=== PATIENT | female | born 1980 | race Caucasian/White ===

== ENCOUNTER 2016-12-21 12:37 | Emergency (ER) | payer BC ==
[2016-12-21] MEDS ORDERED: METOCLOPRAMIDE INJ 10MG/2ML VIAL (J2765) As Ordered ONE (13:47)
[2016-12-21 13:56] LABS: BASO # 0.1 K/mm3 (0.0-0.2); BASO % 0.8 % (0.0-1.0); EOS # 0.2 K/mm3 (0.0-0.50); LARGE UNSTAINED CELL # 0.1 K/mm3 (0.0-0.4); LARGE UNSTAINED CELL % 1.5 % (0.0-4.0); LYMPH # 3.3 K/mm3 (1.5-4.5); LYMPH % 38.9 % (24.0-44.0); MEAN CORPUSCULAR HEMOGLOBIN 30.5 pg (27.0-33.0); MEAN CORPUSCULAR HGB CONC 33.5 g/dl (32.0-36.5); MEAN CORPUSCULAR VOLUME 91.1 fl (80.0-96.0); MONO # 0.4 K/mm3 (0.0-0.8); MONO % 4.6 % (0.0-5.0); NEUTROPHILS # 4.2 K/mm3 (1.8-7.7); NEUTROPHILS % 52.2 % (36.0-66.0); PLATELET COUNT, AUTOMATED 367 k/mm3 (150-450); RED CELL DISTRIBUTION WIDTH 13.8 % (11.5-14.5)
[2016-12-21 14:27] LABS: ALBUMIN 3.7 GM/DL (3.2-5.2); ALBUMIN/GLOBULIN RATIO 0.93 (1.00-1.93); ALKALINE PHOSPHATASE 82 U/L (45-117); ALT/SGPT 29 U/L (12-78); ANION GAP 9 MEQ/L (8-16); AST/SGOT 29 U/L (15-37); BILIRUBIN,DIRECT < 0.1 MG/DL (0.0-0.2); BILIRUBIN,TOTAL 0.2 MG/DL (0.2-1.0); BLOOD UREA NITROGEN 10 MG/DL (7-18); CALCIUM LEVEL 8.8 MG/DL (8.5-10.1); CARBON DIOXIDE LEVEL 27 MEQ/L (21-32); CHLORIDE LEVEL 103 MEQ/L (98-107); CREATININE FOR GFR 0.64 MG/DL (0.55-1.02); GLOMERULAR FILTRATION RATE > 60.0 (>60); GLUCOSE, FASTING 97 MG/DL (70-105); POTASSIUM SERUM 3.9 MEQ/L (3.5-5.1); SODIUM LEVEL 139 MEQ/L (136-145); TOTAL PROTEIN 7.7 GM/DL (6.4-8.2)
[2016-12-21] MEDS ORDERED: ISOVUE-370 76% 100ML VIAL (Q9967) As Ordered ONE (14:59)
--- NOTE | 2016-12-21 15:50 | EDDOCDS ---
Physician Documentation [facility] Name: Sharonda Cardona Age: 36 yrs Sex: Female : 1980 Arrival Date: 12/21/2016 Time: 12:37 Bed I5 / M5 Private MD: IVANIA BROOKS Disposition: 12/21/16 15:38 Discharged to Home/Self Care. Impression: Nausea and vomiting. - Condition is Stable. - Discharge Instructions: Biliary Colic, Nausea and Vomiting, Viral Gastroenteritis. - Prescriptions for Reglan 10 mg Oral Tablet - take 1 tablet by ORAL route every 6 hours take 30 minutes before meals and at bedtime; 20 tablet. - Work Release Form - 1 day, Medication Reconciliation form. - Follow up: IVANIA BROOKS; When: Call to arrange an appointment; Reason: Wound/Symptom Recheck, Recheck today's complaints, Worsening of conditions, Continuance of care. - Problem is an ongoing problem. - Symptoms have improved. Historical: - Allergies: PENICILLINS; - Home Meds: 1. Zofran (as hydrochloride) 4 mg Oral tab (Last dose: 12/21/2016 08:00) - PMHx: none; - PSHx: Tubal ligation; - Social history: Smoking status: Patient states was never smoker of tobacco. No barriers to communication noted, The patient speaks fluent Sami, Speaks appropriately for age. - Family history: Not pertinent. - : The pt / caregiver states he / she is not on anticoagulants. Home medication list is obtained from the patient. - Exposure Risk Screening:: None identified. 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 2 in. (157.48 cm) (R); Pain 0/10; 15:47 BP 138 / 93; Pulse 78; Resp 18; Temp 96.5(T); Pulse Ox 97% on R/A; Pain 0/10; mcp 12:39 Body Mass Index 35.85 (88.90 kg, 157.48 cm) ct3 MDM: 13:30 NS 0.9% 1000 ml IV at bolus once ordered. cc10 13:30 IV Saline Lock ordered. cc10 13:30 Undress patient appropriately for examination ordered. cc10 13:31 Metoclopramide 10 mg IV at 40 mg/hr once over 15 mins ordered. cc10 13:31 Basic Metabolic Profile Ordered. EDMS 13:31 CBC with Diff Ordered. EDMS 13:31 Lipase Ordered. EDMS 13:31 Liver Profile Ordered. EDMS 13:31 Urinalysis Ordered. EDMS 13:31 CT ABD & PELVIS: IV Contrast Only Ordered. EDMS 13:31 NOTHING BY MOUTH+DIET ordered. EDMS 13:57 Financial registration complete. lg 14:40 Liver Profile Reviewed. cc10 14:40 Urinalysis Reviewed. cc10 14:40 Basic Metabolic Profile Reviewed. cc10 14:40 CBC with Diff Reviewed. cc10 14:40 Lipase Reviewed. cc10 15:02 [facility] Payment Agreement was scanned into [employer] and attached to record. lg Administered Medications: 13:58 Drug: Metoclopramide 10 mg [metoclopramide 5 mg/mL injection solution] Route: IV; Rate: mcp 40 mg/hr; Infused Over: 15 mins; Site: left antecubital; 14:40 Follow up: IV Status: Completed infusion; IV Intake: 9ml mcp 13:59 Drug: NS 0.9% 1000 ml [sodium chloride 0.9 % intravenous solution] Route: IV; Rate: mcp bolus; Site: left antecubital; Signatures: Dispatcher [employer] Socorro Corley RN RN srm Peters, Mary, RN RN mcp Ganter, LoriLee, Reg Reg lg Coniski, Colin, PA-C PA-C cc10 The chart was reviewed and I authenticate all verbal orders and agree with the evaluation and treatment provided.Attachments: 15:02 [facility] Payment Agreement lg MTDD
--- NOTE | 2016-12-21 15:50 | EDDOCDS ---
Nurse's Notes [facility] Name: Sharonda Cardona Age: 36 yrs Sex: Female : 1980 Arrival Date: 12/21/2016 Time: 12:37 Bed I5 / M5 Private MD: IVANIA BROOKS Diagnosis: Nausea and vomiting Presentation: 12/21 12:42 Presenting complaint: Patient states: vomiting for a week. been to urgent care x2 last srm night being the last. nausea. was given zofran and it doesn't help. abd pain when eats. Presenting complaint: Patient states: able to keep sips of fluids down. Adult Sepsis Screening: The patient does not have new or worsening altered mentation. Patient's respiratory rate is less than 22. Systolic blood pressure is greater than 100. Patient has a qSOFA score of 0- Negative Sepsis Screen. Suicide/Homicide risk assessment- the patient denies having any suicidal and/or homicidal ideations and does not present with any other emotional, behavioral or mental health complaints. Status: Patient is not a manager clinical services or dependent. Transition of care: patient was not received from another setting of care. 12:42 Acuity: JANEY Level 3 srm 12:42 Method Of Arrival: Walkin/Carried/Asstd srm Triage Assessment: 12:44 General: Appears in no apparent distress, Behavior is appropriate for age, cooperative. srm Pain: Pain currently is 6 out of 10 on a pain scale. HIV screening NA for this visit Offered previously. 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 Zofran (as hydrochloride) 4 mg Oral tab (Last dose: 12/21/2016 08:00) - PMHx: none; - PSHx: Tubal ligation; - Social history: Smoking status: Patient states was never smoker of tobacco. No barriers to communication noted, The patient speaks fluent Palestinian, Speaks appropriately for age. - Family history: Not pertinent. - : The pt / caregiver states he / she is not on anticoagulants. Home medication list is obtained from the patient. - Exposure Risk Screening:: None identified. Screenin:17 Sensitive Patient. kcs 14:06 Screening information is obtained from the patient. Fall risk: No risks identified. mcp Assistance ADL's: requires no assistance with activities of daily living. Abuse/DV Screen: The patient / caregiver reports he/she is: not in a situation that causes fear, pain or injury. Nutritional screening: No deficits noted. Advance Directives: There is no active DNR order. home support is adequate. Assessment: 14:06 General: Appears in no apparent distress, Behavior is cooperative. Neurological: No mcp deficits noted. Respiratory: Airway is patent Respiratory effort is even, unlabored. GI: Abdomen is non- distended Bowel sounds present X 4 quads. Abd is soft X 4 quads Reports nausea, vomiting. Derm: Skin is pink, warm & dry. 15:47 General: Appears in no apparent distress, Behavior is cooperative. Neurological: No mcp deficits noted. Respiratory: Airway is patent Respiratory effort is even, unlabored. GI: Denies nausea, vomiting. Derm: Skin is pink, warm & dry. Vital Signs: 12:39 BP 136 / 65; Pulse 104; Resp 18; Temp 96.9(O); Pulse Ox 97% on R/A; Weight 88.9 kg (M); ct3 Height 5 ft. 2 in. (157.48 cm) (R); Pain 0/10; 15:47 BP 138 / 93; Pulse 78; Resp 18; Temp 96.5(T); Pulse Ox 97% on R/A; Pain 0/10; mcp 12:39 Body Mass Index 35.85 (88.90 kg, 157.48 cm) ct3 Vitals: 12:39 Log In Time: December 21, 2016 at 12:35. ct3 ED Course: 12:38 Patient visited by Nancy Tejada PCA. ct3 12:38 Patient moved to Waiting ct3 12:39 IVANIA BROOKS is Private Physician. ct3 12:41 Patient moved to Pre RCE ct3 12:44 Triage Initiated srm 13:15 Patient moved to Triage 3 ar3 13:16 Maria Teresa Jolly,RN is Primary Nurse. srm 13:17 Katie Craig,BOB is Primary Nurse. srm 13:21 Elías Balderas PA-C is PHCP. cc10 13:21 Darrell Austin MD is Attending Physician. cc10 13:21 Patient visited by Elías Balderas PA-C. cc10 13:21 Patient visited by Elías Balderas PA-C. cc10 13:31 Patient moved to I1 / M1 cj 13:34 Patient moved to I5 / M5 kr3 13:44 Basic Metabolic Profile Sent. [facility] 13:44 CBC with Diff Sent. [facility] 13:44 Lipase Sent. [facility] 13:44 Liver Profile Sent. [facility] 14:07 Patient visited by Armida Mcfarland RN. [facility] 14:07 The patient / caregiver is instructed regarding the plan of care and ED course. Patient mcp has correct armband on for positive identification. Placed in gown. Bed in low position. Call light in reach. 14:07 Inserted saline lock: 20 gauge in left antecubital area and blood collected. The [facility] patient tolerated the procedure well. Labs drawn. (by ED staff). Sent per order to lab. 15:02 [facility] Payment Agreement was scanned into [employer] and attached to record. 15:38 IVANIA BROOKS is Referral Physician. cc10 15:48 Discontinued lock intact, bleeding controlled, pressure dressing applied, No mcp redness/swelling at site. No procedures done that require assistance. Administered Medications: 13:58 Drug: Metoclopramide 10 mg [metoclopramide 5 mg/mL injection solution] Route: IV; Rate: mcp 40 mg/hr; Infused Over: 15 mins; Site: left antecubital; 14:40 Follow up: IV Status: Completed infusion; IV Intake: 9ml [facility] 13:59 Drug: NS 0.9% 1000 ml [sodium chloride 0.9 % intravenous solution] Route: IV; Rate: mcp bolus; Site: left antecubital; Intake: 14:40 IV: 9.00ml; Total: 9.00ml. [facility] Order Results: Lab Order: Basic Metabolic Profile; SPEC'M 12/21/16 13:42 Test: GLUCOSE, FASTING; Value: 97; Range: 70-105; Units: MG/DL; Status: F Test: BLOOD UREA NITROGEN; Value: 10; Range: 7-18; Units: MG/DL; Status: F Test: CREATININE FOR GFR; Value: 0.64; Range: 0.55-1.02; Units: MG/DL; Status: F Test: GLOMERULAR FILTRATION RATE; Value: > 60.0; Range: >60; Status: F Test: SODIUM LEVEL; Value: 139; Range: 136-145; Units: MEQ/L; Status: F Test: POTASSIUM SERUM; Value: 3.9; Range: 3.5-5.1; Units: MEQ/L; Status: F Test: CHLORIDE LEVEL; Value: 103; Range: 98-107; Units: MEQ/L; Status: F Test: CARBON DIOXIDE LEVEL; Value: 27; Range: 21-32; Units: MEQ/L; Status: F Test: ANION GAP; Value: 9; Range: 8-16; Units: MEQ/L; Status: F Test: CALCIUM LEVEL; Value: 8.8; Range: 8.5-10.1; Units: MG/DL; Status: F Test Note: ; Units are mL/min/1.73 m2 Chronic Kidney Disease Staging per NKF: Stage I & II GFR >=60 Normal to Mildly Decreased Stage III GFR 30-59 Moderately Decreased Stage IV GFR 15-29 Severely Decreased Stage V GFR <15 Very Little GFR Left ESRD GFR <15 on INSPECTOR PURCHASED PARTS Lab Order: CBC with Diff; SPEC'M 12/21/16 13:42 Test: WHITE BLOOD COUNT; Value: 8.0; Range: 4.0-10.0; Units: K/mm3; Status: F Test: RED BLOOD COUNT; Value: 4.74; Range: 4.00-5.40; Units: M/mm3; Status: F Test: HEMOGLOBIN; Value: 14.5; Range: 12.0-16.0; Units: g/dl; Status: F Test: HEMATOCRIT; Value: 43.2; Range: 36.0-47.0; Units: %; Status: F Test: MEAN CORPUSCULAR VOLUME; Value: 91.1; Range: 80.0-96.0; Units: fl; Status: F Test: MEAN CORPUSCULAR HEMOGLOBIN; Value: 30.5; Range: 27.0-33.0; Units: pg; Status: F Test: MEAN CORPUSCULAR HGB CONC; Value: 33.5; Range: 32.0-36.5; Units: g/dl; Status: F Test: RED CELL DISTRIBUTION WIDTH; Value: 13.8; Range: 11.5-14.5; Units: %; Status: F Test: PLATELET COUNT, AUTOMATED; Value: 367; Range: 150-450; Units: k/mm3; Status: F Test: NEUTROPHILS %; Value: 52.2; Range: 36.0-66.0; Units: %; Status: F Test: LYMPH %; Value: 38.9; Range: 24.0-44.0; Units: %; Status: F Test: MONO %; Value: 4.6; Range: 0.0-5.0; Units: %; Status: F Test: EOS %; Value: 2.0; Range: 0.0-3.0; Units: %; Status: F Test: BASO %; Value: 0.8; Range: 0.0-1.0; Units: %; Status: F Test: LARGE UNSTAINED CELL %; Value: 1.5; Range: 0.0-4.0; Units: %; Status: F Test: NEUTROPHILS #; Value: 4.2; Range: 1.8-7.7; Units: K/mm3; Status: F Test: LYMPH #; Value: 3.3; Range: 1.5-4.5; Units: K/mm3; Status: F Test: MONO #; Value: 0.4; Range: 0.0-0.8; Units: K/mm3; Status: F Test: EOS #; Value: 0.2; Range: 0.0-0.50; Units: K/mm3; Status: F Test: BASO #; Value: 0.1; Range: 0.0-0.2; Units: K/mm3; Status: F Test: LARGE UNSTAINED CELL #; Value: 0.1; Range: 0.0-0.4; Units: K/mm3; Status: F Lab Order: Lipase; SPEC'M 12/21/16 13:42 Test: LIPASE; Value: 189; Range: 73-393; Units: U/L; Status: F Lab Order: Liver Profile; SPEC'M 12/21/16 13:42 Test: AST/SGOT; Value: 29; Range: 15-37; Units: U/L; Status: F Test: ALT/SGPT; Value: 29; Range: 12-78; Units: U/L; Status: F Test: ALKALINE PHOSPHATASE; Value: 82; Range: 45-117; Units: U/L; Status: F Test: BILIRUBIN,TOTAL; Value: 0.2; Range: 0.2-1.0; Units: MG/DL; Status: F Test: BILIRUBIN,DIRECT; Value: < 0.1; Range: 0.0-0.2; Units: MG/DL; Status: F Test: TOTAL PROTEIN; Value: 7.7; Range: 6.4-8.2; Units: GM/DL; Status: F Test: ALBUMIN; Value: 3.7; Range: 3.2-5.2; Units: GM/DL; Status: F Test: ALBUMIN/GLOBULIN RATIO; Value: 0.93; Range: 1.00-1.93; Abnormal: Below low normal; Status: F Lab Order: Urinalysis; SPEC'M 12/21/16 14:17 Test: APPEARANCE, URINE; Value: HAZY; Range: CLEAR; Status: F Test: COLOR, URINE; Value: YELLOW; Range: YELLOW; Status: F Test: PH,URINE; Value: 6.0; Range: 5.0-9.0; Units: UNITS; Status: F Test: SPECIFIC GRAVITY URINE AUTO; Value: 1.008; Range: 1.002-1.035; Status: F Test: PROTEIN, URINE AUTO; Value: NEGATIVE; Range: NEGATIVE; Units: mg/dL; Status: F Test: GLUCOSE, URINE (UA) AUTO; Value: NEGATIVE; Range: NEGATIVE; Units: mg/dL; Status: F Test: KETONE, URINE AUTO; Value: NEGATIVE; Range: NEGATIVE; Units: mg/dL; Status: F Test: UROBILINOGEN, URINE AUTO; Value: 0.2; Range: 0.0-2.0; Units: mg/dL; Status: F Test: BILIRUBIN, URINE AUTO; Value: NEGATIVE; Range: NEGATIVE; Status: F Test: NITRITE, URINE AUTO; Value: NEGATIVE; Range: NEGATIVE; Status: F Test: LEUKOCYTE ESTERASE, URINE AUTO; Value: 2+; Range: NEGATIVE; Abnormal: Above high normal; Status: F Test: BLOOD, URINE BLOOD; Value: 1+; Range: NEGATIVE; Abnormal: Above high normal; Status: F Test: WBC, URINE AUTO; Value: 6; Range: 0-3; Abnormal: Above high normal; Units: /HPF; Status: F Test: RBC, URINE AUTO; Value: 5; Range: 0-3; Abnormal: Above high normal; Units: /HPF; Status: F Test: BACTERIA, URINE AUTO; Value: 1+; Range: NEGATIVE; Abnormal: Above high normal; Status: F Test: SQUAMOUS EPITHELIAL CELL UR AU; Value: 8; Range: 0-6; Units: /HPF; Status: F Test: HYALINE CAST, URINE AUTO; Value: 0; Range: 0-1; Units: /LPF; Status: F Outcome: 15:38 Discharge ordered by Provider. cc10 15:48 Discharge Assessment: patient administered narcotics - no. The following High Risk [facility] Discharge criteria are identified: None. Discharged to home ambulatory, with family. Condition: stable. Discharge instructions given to patient, Instructed on discharge instructions, follow up and referral plans. medication usage, diet, Demonstrated understanding of instructions, medications, Pt was receptive of discharge instructions/ teaching. Prescriptions given X 1, Work note provided to patient. CT Study completed. Property sent home with patient. 15:49 Patient left the ED. [facility] Signatures: Orly Benjamin RN RN [facility] Socorro Parrish RN BOB [facility] Armida Mcfarland RN RN [facility] Kaz Mason, Abhijit [facility] Katie Craig,RN RN kr3 Kita Ladd, KITCHEN MANAGER KITCHEN MANAGER ar3 Tejada, Nancy, KITCHEN MANAGER KITCHEN MANAGER ct3 Maria Teresa Jolly RN RN Elías Ponce PA-C PADelroy cc10 MTDD
--- NOTE | 2016-12-22 05:51 | REP ---
Clinical: Abdominal pain. Technique: Axial contrast enhanced images from the lung bases to the pubic symphysis using 100 ml Isovue 370 intravenous contrast material with coronal and sagittal re-formations. Comparison: None. Findings: Lung bases demonstrate fibroatelectatic changes. Visualized heart and pericardium normal. Liver, spleen, pancreas, gallbladder, bilateral adrenal glands and kidneys are normal the enteric system demonstrates colonic diverticulosis without obstruction or obvious acute inflammatory process. Normal terminal ileum and appendix identified in the right lower quadrant. Pelvis demonstrates normal bladder and age-appropriate uterus/adnexa. No pelvic fluid/ascites. No intraperitoneal or retroperitoneal adenopathy. No free air. Vasculature appears normal and without aneurysm or dissection. Surrounding musculoskeletal structures demonstrate degenerative changes at the L5-S1 level. Impression: 1. Colonic and sigmoid diverticulosis without obvious acute diverticulitis. 2. Degenerative changes at the L5-S1 level. 3. No further acute intra-abdominal or pelvic pathology appreciated. Signed by Jose Juan Dill MD 12/21/2016 03:29 P
--- NOTE | 2016-12-23 16:50 | EDDOCDS ---
Physician Documentation [facility] Name: Sharonda Cardona Age: 36 yrs Sex: Female : 1980 Arrival Date: 12/21/2016 Time: 12:37 Bed I5 / M5 Private MD: IVANIA BROOKS Disposition: 12/21/16 15:38 Discharged to Home/Self Care. Impression: Nausea and vomiting. - Condition is Stable. - Discharge Instructions: Biliary Colic, Nausea and Vomiting, Viral Gastroenteritis. - Prescriptions for Reglan 10 mg Oral Tablet - take 1 tablet by ORAL route every 6 hours take 30 minutes before meals and at bedtime; 20 tablet. - Work Release Form - 1 day, Medication Reconciliation form. - Follow up: IVANIA BROOKS; When: Call to arrange an appointment; Reason: Wound/Symptom Recheck, Recheck today's complaints, Worsening of conditions, Continuance of care. - Problem is an ongoing problem. - Symptoms have improved. Historical: - Allergies: PENICILLINS; - Home Meds: 1. Zofran (as hydrochloride) 4 mg Oral tab (Last dose: 12/21/2016 08:00) - PMHx: none; - PSHx: Tubal ligation; - Social history: Smoking status: Patient states was never smoker of tobacco. No barriers to communication noted, The patient speaks fluent Swedish, Speaks appropriately for age. - Family history: Not pertinent. - : The pt / caregiver states he / she is not on anticoagulants. Home medication list is obtained from the patient. - Exposure Risk Screening:: None identified. 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 2 in. (157.48 cm) (R); Pain 0/10; 15:47 BP 138 / 93; Pulse 78; Resp 18; Temp 96.5(T); Pulse Ox 97% on R/A; Pain 0/10; mcp 12:39 Body Mass Index 35.85 (88.90 kg, 157.48 cm) ct3 MDM: 13:30 NS 0.9% 1000 ml IV at bolus once ordered. cc10 13:30 IV Saline Lock ordered. cc10 13:30 Undress patient appropriately for examination ordered. cc10 13:31 Metoclopramide 10 mg IV at 40 mg/hr once over 15 mins ordered. cc10 13:31 Basic Metabolic Profile Ordered. EDMS 13:31 CBC with Diff Ordered. EDMS 13:31 Lipase Ordered. EDMS 13:31 Liver Profile Ordered. EDMS 13:31 Urinalysis Ordered. EDMS 13:31 CT ABD & PELVIS: IV Contrast Only Ordered. EDMS 13:31 NOTHING BY MOUTH+DIET ordered. EDMS 13:57 Financial registration complete. lg 14:40 Liver Profile Reviewed. cc10 14:40 Urinalysis Reviewed. cc10 14:40 Basic Metabolic Profile Reviewed. cc10 14:40 CBC with Diff Reviewed. cc10 14:40 Lipase Reviewed. cc10 15:02 [facility] Payment Agreement was scanned into [employer] and attached to record. 12/22 13:20 T-Sheet-- Draft Copy was scanned into [employer] and attached to record. gb Administered Medications: 12/21 13:58 Drug: Metoclopramide 10 mg [metoclopramide 5 mg/mL injection solution] Route: IV; Rate: mcp 40 mg/hr; Infused Over: 15 mins; Site: left antecubital; 14:40 Follow up: IV Status: Completed infusion; IV Intake: 9ml mcp 13:59 Drug: NS 0.9% 1000 ml [sodium chloride 0.9 % intravenous solution] Route: IV; Rate: mcp bolus; Site: left antecubital; Signatures: Dispatcher [facility] Socorro Corley RN RN srm Peters, Mary, RN RN mcp Barnhardt, Gloria, Reg Reg gb Kaz Mason, Reg Reg lg Elías Baldears, VALERIO PADelroy cc10 The chart was reviewed and I authenticate all verbal orders and agree with the evaluation and treatment provided.Attachments: 15:02 [facility] Payment Agreement 12/22 13:20 T-Sheet-- Draft Copy gb Chart Complete MTDD
--- NOTE | 2016-12-23 16:50 | EDDOCDS ---
Physician Documentation [facility] Name: Sharonda Cardona Age: 36 yrs Sex: Female : 1980 Arrival Date: 12/21/2016 Time: 12:37 Bed I5 / M5 Private MD: IVANIA BROOKS Disposition: 12/21/16 15:38 Discharged to Home/Self Care. Impression: Nausea and vomiting. - Condition is Stable. - Discharge Instructions: Biliary Colic, Nausea and Vomiting, Viral Gastroenteritis. - Prescriptions for Reglan 10 mg Oral Tablet - take 1 tablet by ORAL route every 6 hours take 30 minutes before meals and at bedtime; 20 tablet. - Work Release Form - 1 day, Medication Reconciliation form. - Follow up: IVANIA BROOKS; When: Call to arrange an appointment; Reason: Wound/Symptom Recheck, Recheck today's complaints, Worsening of conditions, Continuance of care. - Problem is an ongoing problem. - Symptoms have improved. Historical: - Allergies: PENICILLINS; - Home Meds: 1. Zofran (as hydrochloride) 4 mg Oral tab (Last dose: 12/21/2016 08:00) - PMHx: none; - PSHx: Tubal ligation; - Social history: Smoking status: Patient states was never smoker of tobacco. No barriers to communication noted, The patient speaks fluent Mongolian, Speaks appropriately for age. - Family history: Not pertinent. - : The pt / caregiver states he / she is not on anticoagulants. Home medication list is obtained from the patient. - Exposure Risk Screening:: None identified. 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 2 in. (157.48 cm) (R); Pain 0/10; 15:47 BP 138 / 93; Pulse 78; Resp 18; Temp 96.5(T); Pulse Ox 97% on R/A; Pain 0/10; mcp 12:39 Body Mass Index 35.85 (88.90 kg, 157.48 cm) ct3 MDM: 13:30 NS 0.9% 1000 ml IV at bolus once ordered. cc10 13:30 IV Saline Lock ordered. cc10 13:30 Undress patient appropriately for examination ordered. cc10 13:31 Metoclopramide 10 mg IV at 40 mg/hr once over 15 mins ordered. cc10 13:31 Basic Metabolic Profile Ordered. EDMS 13:31 CBC with Diff Ordered. EDMS 13:31 Lipase Ordered. EDMS 13:31 Liver Profile Ordered. EDMS 13:31 Urinalysis Ordered. EDMS 13:31 CT ABD & PELVIS: IV Contrast Only Ordered. EDMS 13:31 NOTHING BY MOUTH+DIET ordered. EDMS 13:57 Financial registration complete. lg 14:40 Liver Profile Reviewed. cc10 14:40 Urinalysis Reviewed. cc10 14:40 Basic Metabolic Profile Reviewed. cc10 14:40 CBC with Diff Reviewed. cc10 14:40 Lipase Reviewed. cc10 15:02 [facility] Payment Agreement was scanned into [employer] and attached to record. 12/22 13:20 T-Sheet-- Draft Copy was scanned into [employer] and attached to record. gb Administered Medications: 12/21 13:58 Drug: Metoclopramide 10 mg [metoclopramide 5 mg/mL injection solution] Route: IV; Rate: mcp 40 mg/hr; Infused Over: 15 mins; Site: left antecubital; 14:40 Follow up: IV Status: Completed infusion; IV Intake: 9ml mcp 13:59 Drug: NS 0.9% 1000 ml [sodium chloride 0.9 % intravenous solution] Route: IV; Rate: mcp bolus; Site: left antecubital; Signatures: Dispatcher [facility] Socorro Corley RN RN srm Peters, Mary, RN RN mcp Barnhardt, Gloria, Reg Reg gb Kaz Mason, Reg Reg lg Elías Balderas, VALERIO PADelroy cc10 The chart was reviewed and I authenticate all verbal orders and agree with the evaluation and treatment provided.Attachments: 15:02 [facility] [place] 12/22 13:20 T-Sheet-- Draft Copy gb Chart Complete MTDD
--- NOTE | 2016-12-23 16:50 | EDDOCDS ---
Nurse's Notes [facility] Name: Sharonda Cardona Age: 36 yrs Sex: Female : 1980 Arrival Date: 12/21/2016 Time: 12:37 Bed I5 / M5 Private MD: IVANIA BROOKS Diagnosis: Nausea and vomiting Presentation: 12/21 12:42 Presenting complaint: Patient states: vomiting for a week. been to urgent care x2 last srm night being the last. nausea. was given zofran and it doesn't help. abd pain when eats. Presenting complaint: Patient states: able to keep sips of fluids down. Adult Sepsis Screening: The patient does not have new or worsening altered mentation. Patient's respiratory rate is less than 22. Systolic blood pressure is greater than 100. Patient has a qSOFA score of 0- Negative Sepsis Screen. Suicide/Homicide risk assessment- the patient denies having any suicidal and/or homicidal ideations and does not present with any other emotional, behavioral or mental health complaints. Status: Patient is not a neighborhood service center director or dependent. Transition of care: patient was not received from another setting of care. 12:42 Acuity: JANEY Level 3 srm 12:42 Method Of Arrival: Walkin/Carried/Asstd srm Triage Assessment: 12:44 General: Appears in no apparent distress, Behavior is appropriate for age, cooperative. srm Pain: Pain currently is 6 out of 10 on a pain scale. HIV screening NA for this visit Offered previously. 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 Zofran (as hydrochloride) 4 mg Oral tab (Last dose: 12/21/2016 08:00) - PMHx: none; - PSHx: Tubal ligation; - Social history: Smoking status: Patient states was never smoker of tobacco. No barriers to communication noted, The patient speaks fluent [place], Speaks appropriately for age. - Family history: Not pertinent. - : The pt / caregiver states he / she is not on anticoagulants. Home medication list is obtained from the patient. - Exposure Risk Screening:: None identified. Screenin:17 Sensitive Patient. kcs 14:06 Screening information is obtained from the patient. Fall risk: No risks identified. mcp Assistance ADL's: requires no assistance with activities of daily living. Abuse/DV Screen: The patient / caregiver reports he/she is: not in a situation that causes fear, pain or injury. Nutritional screening: No deficits noted. Advance Directives: There is no active DNR order. home support is adequate. Assessment: 14:06 General: Appears in no apparent distress, Behavior is cooperative. Neurological: No mcp deficits noted. Respiratory: Airway is patent Respiratory effort is even, unlabored. GI: Abdomen is non- distended Bowel sounds present X 4 quads. Abd is soft X 4 quads Reports nausea, vomiting. Derm: Skin is pink, warm & dry. 15:47 General: Appears in no apparent distress, Behavior is cooperative. Neurological: No mcp deficits noted. Respiratory: Airway is patent Respiratory effort is even, unlabored. GI: Denies nausea, vomiting. Derm: Skin is pink, warm & dry. Vital Signs: 12:39 BP 136 / 65; Pulse 104; Resp 18; Temp 96.9(O); Pulse Ox 97% on R/A; Weight 88.9 kg (M); ct3 Height 5 ft. 2 in. (157.48 cm) (R); Pain 0/10; 15:47 BP 138 / 93; Pulse 78; Resp 18; Temp 96.5(T); Pulse Ox 97% on R/A; Pain 0/10; mcp 12:39 Body Mass Index 35.85 (88.90 kg, 157.48 cm) ct3 Vitals: 12:39 Log In Time: December 21, 2016 at 12:35. ct3 ED Course: 12:38 Patient visited by Nancy Tejada PCA. ct3 12:38 Patient moved to Waiting ct3 12:39 IVANIA BROOKS is Private Physician. ct3 12:41 Patient moved to Pre RCE ct3 12:44 Triage Initiated srm 13:15 Patient moved to Triage 3 ar3 13:16 Maria Teresa Jolly,RN is Primary Nurse. srm 13:17 Katie Craig,BOB is Primary Nurse. srm 13:21 Elías Balderas PA-C is PHCP. cc10 13:21 Darrell Austin MD is Attending Physician. cc10 13:21 Patient visited by Elías Balderas PA-C. cc10 13:21 Patient visited by Elías Balderas PA-C. cc10 13:31 Patient moved to I1 / M1 cj 13:34 Patient moved to I5 / M5 kr3 13:44 Basic Metabolic Profile Sent. [facility] 13:44 CBC with Diff Sent. [facility] 13:44 Lipase Sent. [facility] 13:44 Liver Profile Sent. [facility] 14:07 Patient visited by Armida Mcfarland RN. [facility] 14:07 The patient / caregiver is instructed regarding the plan of care and ED course. Patient mcp has correct armband on for positive identification. Placed in gown. Bed in low position. Call light in reach. 14:07 Inserted saline lock: 20 gauge in left antecubital area and blood collected. The [facility] patient tolerated the procedure well. Labs drawn. (by ED staff). Sent per order to lab. 15:02 [facility] Payment Agreement was scanned into [employer] and attached to record. 15:38 IVANIA BROOKS is Referral Physician. cc10 15:48 Discontinued lock intact, bleeding controlled, pressure dressing applied, No mcp redness/swelling at site. No procedures done that require assistance. 12/22 05:58 CT ABD & PELVIS: IV Contrast Only Returned. EDMS 13:20 T-Sheet-- Draft Copy was scanned into [employer] and attached to record. gb Administered Medications: 12/21 13:58 Drug: Metoclopramide 10 mg [metoclopramide 5 mg/mL injection solution] Route: IV; Rate: mcp 40 mg/hr; Infused Over: 15 mins; Site: left antecubital; 14:40 Follow up: IV Status: Completed infusion; IV Intake: 9ml [facility] 13:59 Drug: NS 0.9% 1000 ml [sodium chloride 0.9 % intravenous solution] Route: IV; Rate: mcp bolus; Site: left antecubital; Intake: 14:40 IV: 9.00ml; Total: 9.00ml. [facility] Order Results: Lab Order: Basic Metabolic Profile; SPEC'M 12/21/16 13:42 Test: GLUCOSE, FASTING; Value: 97; Range: 70-105; Units: MG/DL; Status: F Test: BLOOD UREA NITROGEN; Value: 10; Range: 7-18; Units: MG/DL; Status: F Test: CREATININE FOR GFR; Value: 0.64; Range: 0.55-1.02; Units: MG/DL; Status: F Test: GLOMERULAR FILTRATION RATE; Value: > 60.0; Range: >60; Status: F Test: SODIUM LEVEL; Value: 139; Range: 136-145; Units: MEQ/L; Status: F Test: POTASSIUM SERUM; Value: 3.9; Range: 3.5-5.1; Units: MEQ/L; Status: F Test: CHLORIDE LEVEL; Value: 103; Range: 98-107; Units: MEQ/L; Status: F Test: CARBON DIOXIDE LEVEL; Value: 27; Range: 21-32; Units: MEQ/L; Status: F Test: ANION GAP; Value: 9; Range: 8-16; Units: MEQ/L; Status: F Test: CALCIUM LEVEL; Value: 8.8; Range: 8.5-10.1; Units: MG/DL; Status: F Test Note: ; Units are mL/min/1.73 m2 Chronic Kidney Disease Staging per NKF: Stage I & II GFR >=60 Normal to Mildly Decreased Stage III GFR 30-59 Moderately Decreased Stage IV GFR 15-29 Severely Decreased Stage V GFR <15 Very Little GFR Left ESRD GFR <15 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 Lab Order: CBC with Diff; SPEC'M 12/21/16 13:42 Test: WHITE BLOOD COUNT; Value: 8.0; Range: 4.0-10.0; Units: K/mm3; Status: F Test: RED BLOOD COUNT; Value: 4.74; Range: 4.00-5.40; Units: M/mm3; Status: F Test: HEMOGLOBIN; Value: 14.5; Range: 12.0-16.0; Units: g/dl; Status: F Test: HEMATOCRIT; Value: 43.2; Range: 36.0-47.0; Units: %; Status: F Test: MEAN CORPUSCULAR VOLUME; Value: 91.1; Range: 80.0-96.0; Units: fl; Status: F Test: MEAN CORPUSCULAR HEMOGLOBIN; Value: 30.5; Range: 27.0-33.0; Units: pg; Status: F Test: MEAN CORPUSCULAR HGB CONC; Value: 33.5; Range: 32.0-36.5; Units: g/dl; Status: F Test: RED CELL DISTRIBUTION WIDTH; Value: 13.8; Range: 11.5-14.5; Units: %; Status: F Test: PLATELET COUNT, AUTOMATED; Value: 367; Range: 150-450; Units: k/mm3; Status: F Test: NEUTROPHILS %; Value: 52.2; Range: 36.0-66.0; Units: %; Status: F Test: LYMPH %; Value: 38.9; Range: 24.0-44.0; Units: %; Status: F Test: MONO %; Value: 4.6; Range: 0.0-5.0; Units: %; Status: F Test: EOS %; Value: 2.0; Range: 0.0-3.0; Units: %; Status: F Test: BASO %; Value: 0.8; Range: 0.0-1.0; Units: %; Status: F Test: LARGE UNSTAINED CELL %; Value: 1.5; Range: 0.0-4.0; Units: %; Status: F Test: NEUTROPHILS #; Value: 4.2; Range: 1.8-7.7; Units: K/mm3; Status: F Test: LYMPH #; Value: 3.3; Range: 1.5-4.5; Units: K/mm3; Status: F Test: MONO #; Value: 0.4; Range: 0.0-0.8; Units: K/mm3; Status: F Test: EOS #; Value: 0.2; Range: 0.0-0.50; Units: K/mm3; Status: F Test: BASO #; Value: 0.1; Range: 0.0-0.2; Units: K/mm3; Status: F Test: LARGE UNSTAINED CELL #; Value: 0.1; Range: 0.0-0.4; Units: K/mm3; Status: F Lab Order: Lipase; SPEC'M 12/21/16 13:42 Test: LIPASE; Value: 189; Range: 73-393; Units: U/L; Status: F Lab Order: Liver Profile; SPEC'M 12/21/16 13:42 Test: AST/SGOT; Value: 29; Range: 15-37; Units: U/L; Status: F Test: ALT/SGPT; Value: 29; Range: 12-78; Units: U/L; Status: F Test: ALKALINE PHOSPHATASE; Value: 82; Range: 45-117; Units: U/L; Status: F Test: BILIRUBIN,TOTAL; Value: 0.2; Range: 0.2-1.0; Units: MG/DL; Status: F Test: BILIRUBIN,DIRECT; Value: < 0.1; Range: 0.0-0.2; Units: MG/DL; Status: F Test: TOTAL PROTEIN; Value: 7.7; Range: 6.4-8.2; Units: GM/DL; Status: F Test: ALBUMIN; Value: 3.7; Range: 3.2-5.2; Units: GM/DL; Status: F Test: ALBUMIN/GLOBULIN RATIO; Value: 0.93; Range: 1.00-1.93; Abnormal: Below low normal; Status: F Lab Order: Urinalysis; SPEC'M 12/21/16 14:17 Test: APPEARANCE, URINE; Value: HAZY; Range: CLEAR; Status: F Test: COLOR, URINE; Value: YELLOW; Range: YELLOW; Status: F Test: PH,URINE; Value: 6.0; Range: 5.0-9.0; Units: UNITS; Status: F Test: SPECIFIC GRAVITY URINE AUTO; Value: 1.008; Range: 1.002-1.035; Status: F Test: PROTEIN, URINE AUTO; Value: NEGATIVE; Range: NEGATIVE; Units: mg/dL; Status: F Test: GLUCOSE, URINE (UA) AUTO; Value: NEGATIVE; Range: NEGATIVE; Units: mg/dL; Status: F Test: KETONE, URINE AUTO; Value: NEGATIVE; Range: NEGATIVE; Units: mg/dL; Status: F Test: UROBILINOGEN, URINE AUTO; Value: 0.2; Range: 0.0-2.0; Units: mg/dL; Status: F Test: BILIRUBIN, URINE AUTO; Value: NEGATIVE; Range: NEGATIVE; Status: F Test: NITRITE, URINE AUTO; Value: NEGATIVE; Range: NEGATIVE; Status: F Test: LEUKOCYTE ESTERASE, URINE AUTO; Value: 2+; Range: NEGATIVE; Abnormal: Above high normal; Status: F Test: BLOOD, URINE BLOOD; Value: 1+; Range: NEGATIVE; Abnormal: Above high normal; Status: F Test: WBC, URINE AUTO; Value: 6; Range: 0-3; Abnormal: Above high normal; Units: /HPF; Status: F Test: RBC, URINE AUTO; Value: 5; Range: 0-3; Abnormal: Above high normal; Units: /HPF; Status: F Test: BACTERIA, URINE AUTO; Value: 1+; Range: NEGATIVE; Abnormal: Above high normal; Status: F Test: SQUAMOUS EPITHELIAL CELL UR AU; Value: 8; Range: 0-6; Units: /HPF; Status: F Test: HYALINE CAST, URINE AUTO; Value: 0; Range: 0-1; Units: /LPF; Status: F Radiology Order: CT ABD & PELVIS: IV Contrast Only Test: CT ABD & PELVIS: IV Contrast Only REASON FOR EXAMINATION: Abdomen Pain; Clinical: Abdominal pain.; ; Technique: Axial contrast enhanced images from the lung bases to the pubic; symphysis using 100 ml Isovue 370 intravenous contrast material with coronal and; sagittal re-formations.; ; Comparison: None.; ; Findings:; Lung bases demonstrate fibroatelectatic changes. Visualized heart and; pericardium normal.; ; Liver, spleen, pancreas, gallbladder, bilateral adrenal glands and kidneys are; normal the enteric system demonstrates colonic diverticulosis without obstruction; or obvious acute inflammatory process. Normal terminal ileum and appendix; identified in the right lower quadrant. Pelvis demonstrates normal bladder and; age-appropriate uterus/adnexa. No pelvic fluid/ascites. No intraperitoneal or; retroperitoneal adenopathy. No free air. Vasculature appears normal and without; aneurysm or dissection. Surrounding musculoskeletal structures demonstrate; degenerative changes at the L5-S1 level.; ; Impression:; 1. Colonic and sigmoid diverticulosis without obvious acute diverticulitis.; 2. Degenerative changes at the L5-S1 level.; 3. No further acute intra-abdominal or pelvic pathology appreciated.; ; ; Signed by; Jose Juan Dill MD 12/21/2016 03:29 P; Outcome: 15:38 Discharge ordered by Provider. cc10 15:48 Discharge Assessment: patient administered narcotics - no. The following High Risk [facility] Discharge criteria are identified: None. Discharged to home ambulatory, with family. Condition: stable. Discharge instructions given to patient, Instructed on discharge instructions, follow up and referral plans. medication usage, diet, Demonstrated understanding of instructions, medications, Pt was receptive of discharge instructions/ teaching. Prescriptions given X 1, Work note provided to patient. CT Study completed. Property sent home with patient. 15:49 Patient left the ED. [facility] Signatures: Dispatcher [employer] Orly Wallace, RN RN [facility] Socorro Parrish RN RN srm Peters, Mary, RN RN mcp Barnhardt, Diana, Reg Reg gb IsabellaKaz, Reg Reg lg Katie Craig,BOB RN kr3 Wilberto, Kita, MACHINE BUILDER MACHINE BUILDER ar3 Tejada, Nancy, MACHINE BUILDER MACHINE BUILDER ct3 Maria Teresa JollyRN RN [facility] Elías Balderas, PA-C PA-C cc10 Chart Complete MTDD
== END 2016-12-21 15:49 | disposition home or self-care (01) ==
LOC: M ED 12:37
DX: R11.2 Nausea with vomiting, unspecified (principal); E66.9 Obesity, unspecified; Z68.35 Body mass index [BMI] 35.0-35.9, adult; Z88.0 Allergy status to penicillin
CPT/HCPCS: 36415; 74177; 80048; 80076; 81001; 83690; 85025; 96365; 99284; J2765; Q9967

== ENCOUNTER → 2016-12-30 | Outpatient (REF) | payer BC ==
[2017-01-04 00:06] LABS: O+P EXAM Final report (.)
== END ==
LOC: M LAB REF 20:15
PROVIDERS: ATTEND Physician Assistant
DX: R19.7 Diarrhea, unspecified (principal)

== ENCOUNTER → 2017-04-01 | Outpatient (REF) | payer BC ==
[2017-04-02 14:12] LABS: Lyme Disease IgG/IgM Antibodie <0.91 ISR (0.00-0.90); Lyme Disease IgM Ab Quantitati <0.80 index (0.00-0.79)
== END ==
LOC: M LAB REF 09:26
PROVIDERS: ATTEND Physician Assistant
DX: S70.361A Insect bite (nonvenomous), right thigh, initial encounter (principal); X58.XXXA Exposure to other specified factors, initial encounter; Y92.89 Other specified places as the place of occurrence of the external cause; Y93.89 Activity, other specified; Y99.8 Other external cause status

== ENCOUNTER → 2017-06-09 | Outpatient (REF) | payer BC ==
[2017-06-09 22:28] LABS: BASO % 0.6 % (0.0-1.0); EOS # 0.3 K/mm3 (0.0-0.50); EOS % 3.5 % (0.0-3.0); LYMPH # 2.2 K/mm3 (1.5-4.5); LYMPH % 27.9 % (24.0-44.0); MEAN CORPUSCULAR HEMOGLOBIN 31.1 pg (27.0-33.0); MEAN CORPUSCULAR VOLUME 91.6 fl (80.0-96.0); MONO # 0.5 K/mm3 (0.0-0.8); MONO % 6.4 % (0.0-5.0); NEUTROPHILS # 4.4 K/mm3 (1.8-7.7); RED CELL DISTRIBUTION WIDTH 13.8 % (11.5-14.5); WHITE BLOOD COUNT 7.4 K/mm3 (4.0-10.0)
[2017-06-09 22:46] LABS: ALBUMIN 3.7 GM/DL (3.2-5.2); ALBUMIN/GLOBULIN RATIO 1.16 (1.00-1.93); ALKALINE PHOSPHATASE 68 U/L (45-117); ALT/SGPT 30 U/L (12-78); ANION GAP 10 MEQ/L (8-16); AST/SGOT 26 U/L (15-37); BILIRUBIN,TOTAL 0.3 MG/DL (0.2-1.0); BLOOD UREA NITROGEN 9 MG/DL (7-18); CALCIUM LEVEL 9.1 MG/DL (8.5-10.1); CARBON DIOXIDE LEVEL 25 MEQ/L (21-32); CHLORIDE LEVEL 105 MEQ/L (98-107); CHOLESTEROL LEVEL 228 MG/DL (<200); CREATININE FOR GFR 0.59 MG/DL (0.55-1.02); GLOMERULAR FILTRATION RATE > 60.0 (>60); GLUCOSE, FASTING 95 MG/DL (70-105); POTASSIUM SERUM 4.4 MEQ/L (3.5-5.1); SODIUM LEVEL 140 MEQ/L (136-145); TOTAL PROTEIN 6.9 GM/DL (6.4-8.2); TRIGLYCERIDES LEVEL 264 MG/DL (<150)
== END ==
LOC: M LAB 22:05
PROVIDERS: ATTEND Registered Nurse Diabetes Educator
DX: I10 Essential (primary) hypertension (principal); F32.9 Major depressive disorder, single episode, unspecified

== ENCOUNTER 2018-06-29 21:42 | Emergency (ER) | payer BC ==
[2018-06-29 22:53] LABS: BASO # 0.1 10^3/uL (0.0-0.2); BASO % 0.5 % (0.0-1.0); EOS # 0.2 10^3/uL (0.0-0.50); EOS % 1.5 % (0.0-3.0); HEMATOCRIT 37.8 % (36.0-47.0); HEMOGLOBIN 12.7 g/dl (12.0-15.5); IMMATURE GRANULOCYTE % 0.3 % (0-3.0); LYMPH # 2.3 10^3/uL (1.5-4.5); LYMPH % 21.5 % (24.0-44.0); MEAN CORPUSCULAR HEMOGLOBIN 29.9 pg (27.0-33.0); MEAN CORPUSCULAR HGB CONC 33.6 g/dl (32.0-36.5); MEAN CORPUSCULAR VOLUME 88.9 fl (80.0-96.0); MONO # 0.8 10^3/uL (0.0-0.8); MONO % 7.5 % (0.0-5.0); NEUTROPHILS # 7.3 10^3/uL (1.8-7.7); NEUTROPHILS % 68.7 % (36.0-66.0); PLATELET COUNT, AUTOMATED 280 10^3/uL (150-450); RED BLOOD COUNT 4.25 10^6/uL (4.00-5.40); RED CELL DISTRIBUTION WIDTH 14.1 % (11.5-14.5); WHITE BLOOD COUNT 10.7 10^3/uL (4.0-10.0)
[2018-06-29 23:13] LABS: CONTROL LINE HCG INT CTR LINE PRESENT; HCG, SERUM QUALITATIVE NEGATIVE (NEGATIVE)
[2018-06-29 23:19] LABS: ALBUMIN 3.4 GM/DL (3.2-5.2); ALBUMIN/GLOBULIN RATIO 1.06 (1.00-1.93); ALKALINE PHOSPHATASE 65 U/L (45-117); ALT/SGPT 40 U/L (12-78); ANION GAP 8 MEQ/L (8-16); AST/SGOT 17 U/L (7-37); BILIRUBIN,TOTAL 0.3 MG/DL (0.2-1.0); BLOOD UREA NITROGEN 12 MG/DL (7-18); CARBON DIOXIDE LEVEL 29 MEQ/L (21-32); CHLORIDE LEVEL 105 MEQ/L (98-107); CREATININE FOR GFR 0.58 MG/DL (0.55-1.30); GLOMERULAR FILTRATION RATE > 60.0 (>58); GLUCOSE, FASTING 94 MG/DL (70-100); POTASSIUM SERUM 3.6 MEQ/L (3.5-5.1); SODIUM LEVEL 142 MEQ/L (136-145); TOTAL PROTEIN 6.6 GM/DL (6.4-8.2)
[2018-06-29 23:37] LABS: HIVEXPOSED0 NEGATIVE (NEGATIVE)
[2018-06-29 23:38] LABS: CONTROL LINE INT CTR LINE PRESENT; HIV EXPOSED PT 1 NEGATIVE (NEGATIVE)
[2018-06-30 09:05] LABS: HEPATITIS B SURFACE ANTIBODY POSITIVE (POSITIVE)
[2018-06-30 09:16] LABS: HEPATITIS B SURFACE ANTIGEN NEGATIVE (NEGATIVE)
[2018-06-30 09:43] LABS: HEPATITIS C VIRUS ABY INDEX 0.1 INDEX (<0.8)
== END 2018-06-29 22:52 | disposition home or self-care (01) ==
LOC: M ED 21:42
DX: S61.238A Puncture wound without foreign body of other finger without damage to nail, initial encounter (principal); W46.0XXA Contact with hypodermic needle, initial encounter; Y92.89 Other specified places as the place of occurrence of the external cause
CPT/HCPCS: 80053

== ENCOUNTER → 2019-03-15 | Outpatient (REF) | payer BC ==
[~2019-03-15] MED LIST: HYDR25TAB; METO1TAB32
== END ==
LOC: M WUC 12:18
PROVIDERS: ATTEND Physician Assistant
DX: R10.13 Epigastric pain (principal)

== ENCOUNTER → 2019-03-15 | Outpatient (REF) | payer BC ==
[2019-03-15 20:04] LABS: BASO # 0.1 10^3/uL (0.0-0.2); BASO % 0.5 % (0.0-1.0); EOS % 0.1 % (0.0-3.0); HEMATOCRIT 43.3 % (36.0-47.0); HEMOGLOBIN 14.4 g/dl (12.0-15.5); LYMPH # 2.9 10^3/uL (1.5-4.5); LYMPH % 19.2 % (24.0-44.0); MEAN CORPUSCULAR HEMOGLOBIN 29.8 pg (27.0-33.0); MEAN CORPUSCULAR HGB CONC 33.3 g/dl (32.0-36.5); MEAN CORPUSCULAR VOLUME 89.6 fl (80.0-96.0); MONO # 1.3 10^3/uL (0.0-0.8); MONO % 8.3 % (0.0-5.0); NEUTROPHILS # 10.7 10^3/uL (1.8-7.7); NEUTROPHILS % 71.5 % (36.0-66.0); PLATELET COUNT, AUTOMATED 422 10^3/uL (150-450); RED BLOOD COUNT 4.83 10^6/uL (4.00-5.40)
[2019-03-15 20:09] LABS: ALBUMIN 4.5 GM/DL (3.2-5.2); BILIRUBIN,TOTAL 0.6 MG/DL (0.2-1.0); CALCIUM LEVEL 9.6 MG/DL (8.5-10.1); CREATININE FOR GFR 1.15 MG/DL (0.55-1.30); GLOMERULAR FILTRATION RATE 55.4 (>58); POTASSIUM SERUM 3.3 MEQ/L (3.5-5.1); TOTAL PROTEIN 8.3 GM/DL (6.4-8.2)
== END ==
LOC: M LAB REF 12:45
PROVIDERS: ATTEND Physician Assistant
DX: R11.2 Nausea with vomiting, unspecified (principal); R10.13 Epigastric pain

== ENCOUNTER 2019-05-11 03:28 | Emergency (ER) | payer BC ==
[~2019-05-11] VITALS: Ht 157.5 cm; Wt 89.9 kg
[2019-05-11] MEDS ORDERED: LIDOCAINE 1% MDV 20ML VIAL As Ordered ONE (04:21)
[2019-05-11] MEDS ORDERED: LIDOCAINE 1% MDV 20ML VIAL SC SCH (04:30)
[2019-05-11] MEDS ORDERED: LIDOCAINE 1% SDV INJ 30 ML VIAL SC SCH (04:30)
[2019-05-11 06:48] VITALS: BP 128/87
== END 2019-05-11 06:51 | disposition home or self-care (01) ==
LOC: M ED 03:28
DX: S91.201A Unspecified open wound of right great toe with damage to nail, initial encounter (principal); X50.1XXA Overexertion from prolonged static or awkward postures, initial encounter; Y92.098 Other place in other non-institutional residence as the place of occurrence of the external cause; I10 Essential (primary) hypertension; F17.210 Nicotine dependence, cigarettes, uncomplicated; Z88.0 Allergy status to penicillin; Z88.2 Allergy status to sulfonamides; Z79.899 Other long term (current) drug therapy

== ENCOUNTER 2019-10-27 03:44 | Emergency (ER) | payer BC ==
[~2019-10-27] VITALS: Ht 157.5 cm; Wt 81.8 kg
[2019-10-27] MEDS ORDERED: NS 1,000 ML IV ONE (04:30)
[2019-10-27] MEDS ORDERED: KETOROLAC 30 MG/ML VIAL (J1885) As Ordered ONE (04:30)
[2019-10-27] MEDS ORDERED: ONDANSETRON 4MG/2ML VIAL (J2405) As Ordered ONE (04:30)
[2019-10-27 04:40] LABS: BASO % 0.3 % (0.0-1.0); EOS # 0.1 10^3/uL (0.0-0.5); EOS % 0.6 % (0.0-3.0); HEMATOCRIT 42.2 % (36.0-47.0); HEMOGLOBIN 13.7 g/dl (12.0-15.5); LYMPH # 1.4 10^3/uL (1.5-5.0); LYMPH % 11.8 % (24.0-44.0); MEAN CORPUSCULAR HEMOGLOBIN 28.6 pg (27.0-33.0); MEAN CORPUSCULAR HGB CONC 32.5 g/dl (32.0-36.5); MEAN CORPUSCULAR VOLUME 88.1 fl (80.0-96.0); MONO # 0.7 10^3/uL (0.0-0.8); MONO % 6.2 % (0.0-5.0); NEUTROPHILS # 9.3 10^3/uL (1.5-8.5); NEUTROPHILS % 80.8 % (36.0-66.0); PLATELET COUNT, AUTOMATED 340 10^3/uL (150-450); RED BLOOD COUNT 4.79 10^6/uL (4.00-5.40); WHITE BLOOD COUNT 11.5 10^3/uL (4.0-10.0)
[2019-10-27] MEDS ORDERED: ONDANSETRON 4MG/2ML VIAL (J2405) IV ONE ×2 (04:45→10:15)
[2019-10-27] MEDS ORDERED: KETOROLAC 30 MG/ML VIAL (J1885) IV ONE (04:45)
[2019-10-27 05:01] LABS: ALBUMIN 3.6 GM/DL (3.2-5.2); ALT/SGPT 27 U/L (12-78); BILIRUBIN,DIRECT 0.1 MG/DL (0.0-0.2); BILIRUBIN,TOTAL 0.4 MG/DL (0.2-1.0); BLOOD UREA NITROGEN 8 MG/DL (7-18); CALCIUM LEVEL 9.1 MG/DL (8.5-10.1); CARBON DIOXIDE LEVEL 31 MEQ/L (21-32); CHLORIDE LEVEL 97 MEQ/L (98-107); CREATININE FOR GFR 0.63 MG/DL (0.55-1.30); GLOMERULAR FILTRATION RATE > 60.0 (>58); GLUCOSE, FASTING 116 MG/DL (70-100); LIPASE 90 U/L (73-393); POTASSIUM SERUM 3.2 MEQ/L (3.5-5.1); SODIUM LEVEL 137 MEQ/L (136-145); TOTAL PROTEIN 7.3 GM/DL (6.4-8.2)
[2019-10-27] MEDS: MORPHINE 4 MG/ML 1ML VIAL/SYRINGE (J2270) IV PRN ×2 (05:32→06:58)
[2019-10-27] MEDS ORDERED: METOCLOPRAMIDE INJ 10MG/2ML VIAL (J2765) IV ONE (06:45)
[2019-10-27] MEDS ORDERED: PANTOPRAZOLE 40MG INJ (PROTONIX) (C9113) IV ONE (06:45)
--- NOTE | 2019-10-27 07:52 | REPVR ---
PROCEDURE INFORMATION: Exam: US Abdomen Limited, Right Upper Quadrant Exam date and time: 10/27/2019 7:38 AM Age: 39 years old Clinical indication: Abdominal pain; Additional info: Ruq abd pain with nausea/vomiting TECHNIQUE: Imaging protocol: Real-time ultrasound of the abdomen with image documentation. Examination was focused on the right upper quadrant. COMPARISON: No relevant prior studies available. FINDINGS: Liver: The liver is homogeneous in echotexture. No demonstrated mass or intrahepatic biliary ductal dilatation. Gallbladder: The gallbladder is without demonstrated stones, sludge or wall thickening, and there is no pericholecystic fluid. Sonographic Linares sign was not commented on. Common bile duct: The common bile duct appears large for a patient of this age, measuring 7.4 mm. Pancreas: The pancreas is largely obscured by overlying bowel gas. Right kidney: The right kidney measures 10.8 x 3.9 x 4.8 cm. There is no hydronephrosis or demonstrated renal stone, cyst or mass. Inferior vena cava: The IVC is present. IMPRESSION: Dilatation of the common bile duct up to 7.4 mm. Pancreas largely obscured by bowel gas. Suggest further evaluation with MRI/MRCP. Electronically signed by: Davidson Pickett On 10/27/2019 07:52:11 AM
[2019-10-27 08:57] LABS: AMYLASE 31 U/L (25-115)
[2019-10-27] MEDS ORDERED: MORPHINE 4 MG/ML 1ML VIAL/SYRINGE (J2270) IV ONE (10:15)
[2019-10-27] MEDS ORDERED: CARA1TAB6 PO (11:00)
[2019-10-27] MEDS ORDERED: FLAG500T PO (11:00)
[2019-10-27] MEDS ORDERED: NORC1TAB7 PO (11:00)
[2019-10-27] MEDS ORDERED: OMEP40CA97 PO (11:00)
[2019-10-27] MEDS ORDERED: ZOFR4TAB16 PO (11:00)
[2019-10-27 12:33] VITALS: BP 136/83
--- NOTE | 2019-10-27 12:51 | REP ---
REASON: Abdominal pain with increasing severity. MRCP shows no evidence of intrahepatic ductal dilatation. The maximal common bile duct dimension is 7 mm with rather rapid tapering at the ampulla of vater but without abnormal abrupt cut off of the bile duct. The pancreatic duct is normal. The imaged portion of the gallbladder shows no abnormalities. IMPRESSION: Prominent common bile duct as described above. There are no intraluminal filling defects appreciated. Consider GI consultation. Electronically Signed by Virgilio Zhong DO 10/27/2019 01:24 P
--- NOTE | 2019-10-29 06:42 | ED PDOC ---
Post-Departure Follow-Up lois zelaya faxed foral report of mri abd for fu Debbie Mercedes MD Oct 29, 2019 06:42
--- NOTE | 2019-10-29 06:43 | ED PDOC ---
Post-Departure Follow-Up dr valle also faxed formal report of mri abd for fu Debbie Mercedes MD Oct 29, 2019 06:43
== END 2019-10-27 13:25 | disposition home or self-care (01) ==
LOC: M ED 03:44
DX: R10.11 Right upper quadrant pain (principal); R11.2 Nausea with vomiting, unspecified; K21.9 Gastro-esophageal reflux disease without esophagitis; F17.210 Nicotine dependence, cigarettes, uncomplicated; Z88.0 Allergy status to penicillin; Z88.2 Allergy status to sulfonamides; Z79.891 Long term (current) use of opiate analgesic; Z79.899 Other long term (current) drug therapy
CPT/HCPCS: 74181; 76705; 80048; 80076; 81001; 82150; 83690; 85025; 96361; 96374; 96375; 96376; 99284; C9113; J1885; J2270; J2405; J2765

== ENCOUNTER → 2019-11-30 | Outpatient (CLI) | payer BC ==
[~2019-11-30] MED LIST changes: +CARA1TAB6 PO; +FLAG500T PO; +NORC1TAB7 PO; +OMEP40CA97 PO; +ZOFR4TAB16 PO
--- NOTE | 2019-11-30 10:01 | REP ---
Hepatobiliary scan and gallbladder ejection fraction: History: Right upper quadrant pain. Nausea vomiting. Technique: 6.6 mCi of technetium-99m mebrofenin was injected and sequential anterior images are acquired. 65 minutes after the mebrofenin injection, the patient consumed 8 ounces Ensure and an additional 60 minutes of imaging was acquired. Regions of interest are plotted around the gallbladder. Findings: The initial hepatocellular parenchymal uptake phase is normal and homogeneous. Intra- and extra-hepatic bile ducts are labeled by the 15 -minute image. The gallbladder is first labeled on the 55 -minute image. There is normal washout from the liver parenchyma into the gallbladder and small intestine on subsequent images. The gallbladder ejection fraction is zero %. Values greater than 35 % are considered normal with this technique. Impression: Normal hepatobiliary scan. No observable gallbladder emptying. 0% ejection fraction. Electronically Signed by Blaise Zuniga MD 11/30/2019 09:52 A
== END ==
LOC: M RAD 07:19
PROVIDERS: ATTEND Surgery
DX: R10.11 Right upper quadrant pain (principal)
CPT/HCPCS: 78227; A9537; J2805

== ENCOUNTER → 2020-01-02 | Outpatient (CLI) | payer BC ==
[~2020-01-02] MED LIST changes: -HYDR25TAB; +HYDR25TAB PO; +LISI10TA15 PO; -METO1TAB32; +METO1TAB32 PO; +TRAZ-252 PO
--- NOTE | 2020-01-02 07:48 | ECGEPIP ---
[facility] Test Date: 2020-01-02 Pat Name: SU SERRANO Department: Room: - Gender: Female Spragger: MARIANN : 1980 Requested By: KIKI Granda Order Number: [id number] Reading MD: Sebastián Arango Measurements Intervals [place] Rate: 73 P: 17 OR: 132 QRS: 32 QRSD: 106 T: 38 QT: 407 QTc: 451 Interpretive Statements somatic artifact Normal sinus rhythm Normal tracing Electronically Signed on 01-02-2020 7:47:51 EST by Sebastián Arango
== END ==
LOC: M EKG 06:21
PROVIDERS: ATTEND Surgery
DX: Z01.818 Encounter for other preprocedural examination (principal)

== ENCOUNTER 2020-01-04 10:39 | Day surgery (SDC) | payer BC ==
[~2020-01-04] VITALS: Ht 157.5 cm; Wt 91.4 kg
[~2020-01-04 10:39] MED LIST changes: +LR 1,000 ML IV ONE; +LevoFLOXacin IV 500 MG in IV 1 EA IV ONE
[2020-01-04] MEDS ORDERED: ONDANSETRON 4MG/2ML VIAL (J2405) As Ordered ONE (11:41)
[2020-01-04] MEDS ORDERED: MIDAZOLAM INJ 2 MG/2 ML VIAL (J2250) As Ordered ONE (11:41)
[2020-01-04] MEDS ORDERED: fentaNYL 250 MCG/5 ML INJECTION (J3010) As Ordered ONE (11:41)
[2020-01-04] MEDS ORDERED: LIDOCAINE 2% INJ 100 MG/5 ML SDV (FOR ANES.) As Ordered ONE (11:41)
[2020-01-04] MEDS ORDERED: KETOROLAC 60 MG/2 ML VIAL (J1885) As Ordered ONE (11:41)
[2020-01-04] MEDS ORDERED: propofoL 200 MG/20 ML VIAL As Ordered ONE ×3 (11:41→14:45)
[2020-01-04] MEDS ORDERED: ROCURONIUM BROMIDE 50 MG/5 ML VIAL As Ordered ONE (11:41)
[2020-01-04] MEDS ORDERED: dexameTHASONE 4 MG/ML 1ML VIAL (J1100) As Ordered ONE (11:41)
[2020-01-04] MEDS ORDERED: BUPIVACAINE HCL 0.25% 30 ML VIAL As Ordered ONE (13:12)
[2020-01-04] MEDS ORDERED: LIDOCAINE 1% SDV INJ 30 ML VIAL As Ordered ONE (13:12)
[2020-01-04] MEDS ORDERED: ACETAMINOPHEN 1000MG 100ML IV BTL (OFIRMEV) (J0131 PER 10MG) As Ordered ONE (13:52)
[2020-01-04] MEDS ORDERED: ePHEDrine SULFATE 25 MG/5 ML(5MG/ML) SYRINGE As Ordered ONE (13:52)
[2020-01-04] MEDS ORDERED: ALBUTEROL 6.7GM INHALER **FOR ANES. CART/OMNICELL ONLY As Ordered ONE (14:07)
[2020-01-04] MEDS ORDERED: SUGAMMADEX SODIUM 500 MG/5 ML VIAL (BRIDION) As Ordered ONE (14:10)
--- NOTE | 2020-01-04 14:40 | ROOPDOC ---
[facility] Report Of Operation Report of Operation DATE OF PROCEDURE: 01/04/20 PREPROCEDURE DIAGNOSES: Biliary Dyskinesia. POSTPROCEDURE DIAGNOSES: same. PROCEDURE: Laparoscopic Cholecystectomy. Placement of Unilateral TAP (transversus abdominis plane) block under laparoscopy guidance (1% lidocaine and 1/4% marcaine mixture 49 mLs total given). SURGEON: Dereck Bhagat MD JAMMER HOOKER: ANESTHESIA: General anesthesia plus SEAN ESTIMATED BLOOD LOSS: Approximately 10 mL. COMPLICATIONS: none. REMARKS: 39 F with biliary colic type symptoms despite absence of gallstones, EF at 0% on HIDA Scan. PROCEDURE NOTE: moderately distended, thin walled gb; no palpable stones. DESCRIPTION OF PROCEDURE: Patient was given a dose Levaquin 500 mg IV preoperatively for prophylaxis. She was brought to the operating room, laid supine on the table, compression boots placed for DVT prophylaxis. General endotracheal anesthesia started. Her abdomen then prepped and draped in usual sterile fashion. Surgical timeout was performed prior to starting surgery. Entry into the abdomen done through an incision above the umbilicus. A Veress needle was inserted with a controlled fashion. CO2 insufflation started to pressure 15 mmHg. Using the same incision a 5 mm Visiport was placed under direct vision laparoscope. The area underneath the insertion site was inspected and no injury found. She was then placed in steep reverse Trendelenburg. Her right side was tilted up to further expose the gallbladder. Under direct vision a 11 mm epigastric port and Two 5 mm working ports placed along the right subcostal line. Under Laparoscopy guidance liberal amounts of local anesthesia placed at the transversus abdominal plane with manual palpation and laparoscopy guidance on the right side. Operative findings: Liver appears smooth in contour. Most of the bowels are covered with thick omentum. The gallbladder is noted moderately distended but thin walled. A few flimsy omental adhesions nonted at the body and neck of the gallbladder. No palpable stones within the gallbladder The fundus of the gallbladder was grasped and the gallbladder was elevated superiorly exposing the neck of the gallbladder. The infundibulum identified and retracted laterally. The peritoneum overlying the area was opened up and dissected free both anteriorly and posteriorly to help with retraction of the gallbladder. The hepatocystic triangle was approached and dissected using a [place] and instrument. The cystic duct was identified coming off from the neck of thr gallbladder; this was circumferentially dissected. The cystic artery was identified in its usual position medially behind a small lymph node of Cal[place]. This was similarly circumferentially dissected off surrounding adipose tissue. We continued posterior dissection further taking down the fibroadipose tissue at the cystic plate clearing this off from the neck of the gallbladder proceeding proximally until a critical view of safety was achieved whereby only the previously identified duct and artery coursing through the neck the gallbladder. (photodocumented) At this point the cystic artery was clipped 4 times and divided. After again checking her anatomy and verifying that the previously identified cystic duct, this was also clipped 5 times and divided ([address]). The rest of the gallbladder was then dissected free of the gallbladder bed using Bovie cautery. The gallbladder was then placed in an Endo Catch bag and retrieved outside through the epigastric port site. After re-insufflation and inspected the clips and noted this to be in place. No bile leakage noted. the epigastric fascial d efect is then closed with 0-vicryl using a gigi georgie device. The abdomen was deflated all ports were removed. Rest of the skin incisions closed with 4-0 Monocryl in subcuticular fashion. Steri-Strips and gauze dressings were placed, the wound. Patient was informed they awakened, extubated and brought to recovery room stable DERECK BHAGAT MD Jan 04, 2020 14:40
[2020-01-04] MEDS ORDERED: oxyCODONE 5MG TAB As Ordered ONE (15:02)
[2020-01-04] MEDS: oxyCODONE 5MG TAB PO PRN ×2 (15:02→15:32)
[2020-01-04] MEDS: fentaNYL 100 MCG/2 ML INJECTION (J3010) IV PRN ×4 (15:15→15:30)
[2020-01-04] MEDS ORDERED: ONDANSETRON 4MG/2ML VIAL (J2405) IV PRN ×2 (15:15→16:16)
[2020-01-04] MEDS ORDERED: LR 1,000 ML IV SCH (15:15)
[2020-01-04] MEDS ORDERED: NORCO, ANEXSIA 5/325MG TABLET (HYDROcodone/ACETAMINOPHEN) PO PRN (16:16)
[2020-01-04 16:18] VITALS: BP 134/81
[2020-01-04] MEDS ORDERED: KETOROLAC 30 MG/ML VIAL (J1885) IV PRN (20:00)
== END 2020-01-04 16:53 | disposition home or self-care (01) ==
LOC: M SDC 10:39
PROVIDERS: ATTEND Surgery
DX: K81.1 Chronic cholecystitis (principal); K21.9 Gastro-esophageal reflux disease without esophagitis; I10 Essential (primary) hypertension; F17.218 Nicotine dependence, cigarettes, with other nicotine-induced disorders; Z79.899 Other long term (current) drug therapy; Z88.0 Allergy status to penicillin; Z88.2 Allergy status to sulfonamides
CPT/HCPCS: 47562; 64486; 88304; J0131; J1100; J1885; J1956; J2250; J2405; J3010

== ENCOUNTER → 2020-08-10 | Outpatient (CLI) | payer BC ==
[~2020-08-10] MED LIST changes: -LR 1,000 ML IV ONE; -LevoFLOXacin IV 500 MG in IV 1 EA IV ONE
[2020-08-10 12:40] LABS: BASO # 0.1 10^3/uL (0.0-0.2); BASO % 0.5 % (0.0-1.0); EOS # 0.1 10^3/uL (0.0-0.5); EOS % 0.6 % (0.0-3.0); HEMATOCRIT 37.5 % (36.0-47.0); HEMOGLOBIN 12.3 g/dl (12.0-15.5); LYMPH # 2.3 10^3/uL (1.5-5.0); LYMPH % 23.7 % (24.0-44.0); MEAN CORPUSCULAR HEMOGLOBIN 28.3 pg (27.0-33.0); MEAN CORPUSCULAR HGB CONC 32.8 g/dl (32.0-36.5); MEAN CORPUSCULAR VOLUME 86.2 fl (80.0-96.0); MONO # 0.7 10^3/uL (0.0-0.8); MONO % 7.3 % (0.0-5.0); NEUTROPHILS # 6.5 10^3/uL (1.5-8.5); NEUTROPHILS % 67.6 % (36.0-66.0); PLATELET COUNT, AUTOMATED 461 10^3/uL (150-450); RED BLOOD COUNT 4.35 10^6/uL (4.00-5.40); WHITE BLOOD COUNT 9.6 10^3/uL (4.0-10.0)
[2020-08-10 13:22] LABS: ALBUMIN 3.4 GM/DL (3.2-5.2); ALT/SGPT 43 U/L (12-78); AMYLASE 38 U/L (25-115); BILIRUBIN,TOTAL 0.3 MG/DL (0.2-1.0); BLOOD UREA NITROGEN 9 MG/DL (7-18); CALCIUM LEVEL 8.7 MG/DL (8.5-10.1); CARBON DIOXIDE LEVEL 26 MEQ/L (21-32); CHLORIDE LEVEL 105 MEQ/L (98-107); CREATININE FOR GFR 0.47 MG/DL (0.55-1.30); GLOMERULAR FILTRATION RATE > 60.0 (>58); GLUCOSE, FASTING 107 MG/DL (70-100); LIPASE 83 U/L (73-393); POTASSIUM SERUM 4.1 MEQ/L (3.5-5.1); SODIUM LEVEL 139 MEQ/L (136-145); TOTAL PROTEIN 7.6 GM/DL (6.4-8.2)
== END ==
LOC: M LAB 12:07
PROVIDERS: ATTEND Physician Assistant
DX: R11.2 Nausea with vomiting, unspecified (principal)

== ENCOUNTER → 2020-10-19 | Outpatient (CLI) | payer BC | LOC: M LABSMTC 09:29 | PROVIDERS: ATTEND Pediatrics | DX: Z20.828 Contact with and (suspected) exposure to other viral communicable diseases (principal) ==

== ENCOUNTER 2020-11-14 04:29 | Emergency (ER) | payer BC, OTHER ==
[~2020-11-14] VITALS: Ht 157.5 cm; Wt 100.7 kg
[2020-11-14 04:30] VITALS: BP 135/73
[2020-11-14] MEDS ORDERED: TRUVTAB PO (04:58)
[2020-11-14 05:26] LABS: BASO # 0.1 10^3/uL (0.0-0.2); BASO % 0.5 % (0.0-1.0); EOS # 0.2 10^3/uL (0.0-0.5); EOS % 2.1 % (0.0-3.0); HEMATOCRIT 39.4 % (36.0-47.0); HEMOGLOBIN 12.1 g/dl (12.0-15.5); LYMPH # 2.7 10^3/uL (1.5-5.0); LYMPH % 26.1 % (24.0-44.0); MEAN CORPUSCULAR HEMOGLOBIN 26.9 pg (27.0-33.0); MEAN CORPUSCULAR HGB CONC 30.7 g/dl (32.0-36.5); MEAN CORPUSCULAR VOLUME 87.6 fl (80.0-96.0); MONO # 0.8 10^3/uL (0.0-0.8); NEUTROPHILS # 6.5 10^3/uL (1.5-8.5); PLATELET COUNT, AUTOMATED 424 10^3/uL (150-450); WHITE BLOOD COUNT 10.3 10^3/uL (4.0-10.0)
[2020-11-14 05:55] LABS: ALBUMIN 3.7 GM/DL (3.2-5.2); ALT/SGPT 29 U/L (12-78); BILIRUBIN,TOTAL 0.2 MG/DL (0.2-1.0); BLOOD UREA NITROGEN 17 MG/DL (7-18); CALCIUM LEVEL 8.8 MG/DL (8.5-10.1); CARBON DIOXIDE LEVEL 28 MEQ/L (21-32); CHLORIDE LEVEL 105 MEQ/L (98-107); CREATININE FOR GFR 0.62 MG/DL (0.55-1.30); GLOMERULAR FILTRATION RATE > 60.0 (>58); GLUCOSE, FASTING 91 MG/DL (70-100); POTASSIUM SERUM 4.6 MEQ/L (3.5-5.1); SODIUM LEVEL 137 MEQ/L (136-145); TOTAL PROTEIN 7.3 GM/DL (6.4-8.2)
[2020-11-14 06:00] LABS: HEPATITIS B SURFACE ANTIBODY POSITIVE (POSITIVE)
[2020-11-14 06:10] LABS: HEPATITIS B SURFACE ANTIGEN NEGATIVE (NEGATIVE)
[2020-11-14 06:39] LABS: HEPATITIS C VIRUS ABY INDEX 0.1 INDEX (<0.8); HIV SCREEN CENTAUR EXPOSED NEGATIVE (NEGATIVE)
== END 2020-11-14 06:56 | disposition home or self-care (01) ==
LOC: M ED 04:29
DX: S61.240A Puncture wound with foreign body of right index finger without damage to nail, initial encounter (principal); W46.1XXA Contact with contaminated hypodermic needle, initial encounter; Y99.0 Civilian activity done for income or pay; Y92.9 Unspecified place or not applicable; Y93.9 Activity, unspecified; Z77.21 Contact with and (suspected) exposure to potentially hazardous body fluids; Z88.0 Allergy status to penicillin; Z88.1 Allergy status to other antibiotic agents; Z88.2 Allergy status to sulfonamides

== ENCOUNTER → 2021-03-10 | Outpatient (REF) | payer BC ==
[~2021-03-10] MED LIST changes: +HYDR-3490 PO; -HYDR25TAB PO; +TRUVTAB PO
[2021-03-10 23:01] LABS: BASO % 0.5 % (0.0-1.0); EOS # 0.3 10^3/uL (0.0-0.5); HEMATOCRIT 39.1 % (36.0-47.0); HEMOGLOBIN 11.8 g/dl (12.0-15.5); LYMPH # 2.9 10^3/uL (1.5-5.0); LYMPH % 34.8 % (24.0-44.0); MEAN CORPUSCULAR HEMOGLOBIN 26.7 pg (27.0-33.0); MEAN CORPUSCULAR HGB CONC 30.2 g/dl (32.0-36.5); MEAN CORPUSCULAR VOLUME 88.5 fl (80.0-96.0); MONO # 0.8 10^3/uL (0.0-0.8); MONO % 9.3 % (2.0-8.0); NEUTROPHILS # 4.3 10^3/uL (1.5-8.5); NEUTROPHILS % 51.9 % (36.0-66.0); PLATELET COUNT, AUTOMATED 390 10^3/uL (150-450); RED BLOOD COUNT 4.42 10^6/uL (4.00-5.40); WHITE BLOOD COUNT 8.3 10^3/uL (4.0-10.0)
[2021-03-10 23:17] LABS: ALBUMIN 3.3 GM/DL (3.2-5.2); ALT/SGPT 23 U/L (12-78); BILIRUBIN,TOTAL 0.2 MG/DL (0.2-1.0); BLOOD UREA NITROGEN 11 MG/DL (7-18); CARBON DIOXIDE LEVEL 29 MEQ/L (21-32); CHLORIDE LEVEL 108 MEQ/L (98-107); CHOLESTEROL LEVEL 251 MG/DL (<200); CHOLESTEROL RISK RATIO 5.976 (<5); CREATININE FOR GFR 0.49 MG/DL (0.55-1.30); GLOMERULAR FILTRATION RATE > 60.0 (>58); GLUCOSE, FASTING 82 MG/DL (70-100); HDL CHOLESTEROL 42 MG/DL (>40); LDL CHOLESTEROL 172 MG/DL (<100); NON-HDL-C 209 MG/DL; POTASSIUM SERUM 4.9 MEQ/L (3.5-5.1); SODIUM LEVEL 142 MEQ/L (136-145); TOTAL PROTEIN 6.8 GM/DL (6.4-8.2); TRIGLYCERIDES LEVEL 186 MG/DL (<150)
[2021-03-10 23:18] LABS: HEMOGLOBIN A1c 5.6 %; TOTAL 25(OH) VITAMIN D 9.5 NG/ML (30.0-100.0)
== END ==
LOC: M LAB 22:09
PROVIDERS: ATTEND Nurse Practitioner Family
DX: E55.9 Vitamin D deficiency, unspecified (principal); E78.2 Mixed hyperlipidemia; F32.9 Major depressive disorder, single episode, unspecified; G47.9 Sleep disorder, unspecified; I10 Essential (primary) hypertension

== ENCOUNTER → 2021-08-03 | Outpatient (REF) | payer BC ==
[~2021-08-03] MED LIST changes: +EMTR1TAB16 PO; +OMEP40CA4 PO; -OMEP40CA97 PO; -TRUVTAB PO
[2021-08-04 00:25] LABS: HEMOGLOBIN A1c 5.8 %
[2021-08-04 00:26] LABS: BLOOD UREA NITROGEN 8 MG/DL (7-18); CALCIUM LEVEL 8.5 MG/DL (8.5-10.1); CARBON DIOXIDE LEVEL 26 MEQ/L (21-32); CHLORIDE LEVEL 106 MEQ/L (98-107); CREATININE FOR GFR 0.69 MG/DL (0.55-1.30); FREE T4 0.96 NG/DL (0.76-1.46); GLOMERULAR FILTRATION RATE > 60.0 (>58); GLUCOSE, FASTING 114 MG/DL (70-100); POTASSIUM SERUM 3.7 MEQ/L (3.5-5.1); SODIUM LEVEL 138 MEQ/L (136-145); T UPTAKE 32 % (30-39); THYROXINE (T4) 9.1 UG/DL (4.5-12.0)
[2021-08-04 09:20] LABS: TOTAL 25(OH) VITAMIN D 28.6 NG/ML (30.0-100.0)
[2021-08-04 09:22] LABS: TESTOSTERONE 24 NG/DL (14-76); THYROGLOBULIN ANTIBODY < 15.0 U/ML (<60.0); THYROID PEROXIDASE ANTIBODY 31.7 U/ML (<60.0)
== END ==
LOC: M LAB REF 23:22
PROVIDERS: ATTEND Nurse Practitioner Family
DX: E55.9 Vitamin D deficiency, unspecified (principal); R63.5 Abnormal weight gain

== ENCOUNTER → 2021-08-18 | Outpatient (REF) | LOC: M EMP 09:30 | PROVIDERS: ATTEND Family Medicine | DX: Z20.822 Contact with and (suspected) exposure to COVID-19 (principal) ==

== ENCOUNTER → 2021-10-24 | Outpatient (REF) ==
[~2021-10-24] MED LIST changes: -LISI10TA15 PO; +LISI10TA24 PO
[2021-10-24 12:16] LABS: RSV AMPLIFICATION NEGATIVE (NEGATIVE)
== END ==
LOC: M LABSMTC 09:32
PROVIDERS: ATTEND Pediatrics
DX: Z20.822 Contact with and (suspected) exposure to COVID-19 (principal)

== ENCOUNTER → 2022-01-27 | Outpatient (REF) | LOC: M LABSMTC 09:37 | PROVIDERS: ATTEND Family Medicine | DX: Z20.822 Contact with and (suspected) exposure to COVID-19 (principal) ==

== ENCOUNTER → 2022-03-13 | Outpatient (REF) | LOC: M LABSMTC 11:19 | PROVIDERS: ATTEND Family Medicine | DX: Z11.52 Encounter for screening for COVID-19 (principal) ==

== ENCOUNTER 2022-05-10 05:17 | Emergency (ER) | payer BC ==
[~2022-05-10] VITALS: Ht 157.5 cm; Wt 106.3 kg
[2022-05-10 06:54] VITALS: BP 114/65
== END 2022-05-10 07:05 | disposition home or self-care (01) ==
LOC: M ED 05:17
DX: S39.011A Strain of muscle, fascia and tendon of abdomen, initial encounter (principal); K21.9 Gastro-esophageal reflux disease without esophagitis; I10 Essential (primary) hypertension; F17.200 Nicotine dependence, unspecified, uncomplicated; Z88.0 Allergy status to penicillin; Z88.2 Allergy status to sulfonamides; Y92.9 Unspecified place or not applicable; Y93.9 Activity, unspecified; Z79.811 Long term (current) use of aromatase inhibitors

== ENCOUNTER → 2022-06-02 | Outpatient (REF) | LOC: M LABSMTC 09:21 | PROVIDERS: ATTEND Family Medicine | DX: Z11.52 Encounter for screening for COVID-19 (principal) ==

== ENCOUNTER 2022-06-23 04:42 | Emergency (ER) | payer OTHER, BC ==
[~2022-06-23] VITALS: Ht 157.5 cm; Wt 131.8 kg
[2022-06-23] MEDS ORDERED: KETOROLAC 60MG 2ML VIAL IM ONE (07:10)
[2022-06-23] MEDS ORDERED: LIDO1PAD TOP (08:05)
[2022-06-23] MEDS ORDERED: METH-1164 PO (08:07)
[2022-06-23 08:31] VITALS: BP 126/60
== END 2022-06-23 08:38 | disposition home or self-care (01) ==
LOC: M ED 04:42
DX: M54.50 Low back pain, unspecified (principal); S80.02XA Contusion of left knee, initial encounter; W01.0XXA Fall on same level from slipping, tripping and stumbling without subsequent striking against object, initial encounter; F17.200 Nicotine dependence, unspecified, uncomplicated; I10 Essential (primary) hypertension; Z88.2 Allergy status to sulfonamides; Z88.0 Allergy status to penicillin; Z79.811 Long term (current) use of aromatase inhibitors; Z79.899 Other long term (current) drug therapy; Y92.9 Unspecified place or not applicable; Y93.9 Activity, unspecified; Y99.0 Civilian activity done for income or pay
CPT/HCPCS: 73564; 96372; 99283; J1885

== ENCOUNTER → 2022-06-28 | Outpatient (CLI) | payer OTHER, BC ==
[~2022-06-28] MED LIST changes: +LIDO1PAD TOP; +METH-1164 PO
== END ==
LOC: M SOG 13:39
PROVIDERS: ATTEND Orthopaedic Surgery
DX: M51.36 Other intervertebral disc degeneration, lumbar region (principal); M51.37 Other intervertebral disc degeneration, lumbosacral region

== ENCOUNTER → 2022-11-29 | Outpatient (REF) | LOC: M LABSMTC 09:50 | PROVIDERS: ATTEND Family Medicine | DX: Z11.52 Encounter for screening for COVID-19 (principal) ==

== ENCOUNTER → 2022-11-30 | Outpatient (REF) | LOC: M EMP 09:21 | PROVIDERS: ATTEND Family Medicine | DX: Z11.52 Encounter for screening for COVID-19 (principal) ==

== ENCOUNTER → 2022-12-21 | Outpatient (REF) ==
[2022-12-21 10:45] LABS: RSV AMPLIFICATION NEGATIVE (NEGATIVE)
== END ==
LOC: M LABSMTC 09:23
PROVIDERS: ATTEND Family Medicine
DX: Z11.52 Encounter for screening for COVID-19 (principal)

== ENCOUNTER → 2023-04-05 | Outpatient (REF) | payer OTHER, BC ==
[2023-04-05 23:23] LABS: BASO # 0.1 10^3/uL (0.0-0.2); BASO % 0.7 % (0.0-1.0); EOS # 0.1 10^3/uL (0.0-0.5); HEMATOCRIT 37.8 % (36.0-47.0); HEMOGLOBIN 11.9 g/dl (12.0-15.5); LYMPH # 3.4 10^3/uL (1.5-5.0); LYMPH % 29.3 % (24.0-44.0); MEAN CORPUSCULAR HEMOGLOBIN 25.6 pg (27.0-33.0); MEAN CORPUSCULAR HGB CONC 31.5 g/dl (32.0-36.5); MEAN CORPUSCULAR VOLUME 81.5 fl (80.0-96.0); MONO % 8.3 % (2.0-8.0); NEUTROPHILS # 6.9 10^3/uL (1.5-8.5); NEUTROPHILS % 60.4 % (36.0-66.0); PLATELET COUNT, AUTOMATED 424 10^3/uL (150-450); RED BLOOD COUNT 4.64 10^6/uL (4.00-5.40); WHITE BLOOD COUNT 11.5 10^3/uL (4.0-10.0)
[2023-04-05 23:34] LABS: HEMOGLOBIN A1c 5.7 % (4.0-6.0)
[2023-04-05 23:50] LABS: ALBUMIN 3.9 G/DL (3.2-5.2); ALKALINE PHOSPHATASE 94 U/L (46-116); ALT/SGPT 31 U/L (7.0-40); AST/SGOT 19 U/L (<34); BILIRUBIN,TOTAL 0.3 MG/DL (0.3-1.2); BLOOD UREA NITROGEN 9 MG/DL (9-23); CALCIUM LEVEL 9.7 MG/DL (8.5-10.1); CARBON DIOXIDE LEVEL 25 MMOL/L (20-31); CHLORIDE LEVEL 100 MMOL/L (98-107); CHOLESTEROL LEVEL 224 MG/DL (<200); CHOLESTEROL RISK RATIO 5.12 (<5); CREATININE FOR GFR 0.62 MG/DL (0.55-1.30); GLOMERULAR FILTRATION RATE > 60.0 (>58); GLUCOSE, FASTING 94 MG/DL (60-100); HDL CHOLESTEROL 43.7 MG/DL (>40); LDL CHOLESTEROL 141.9 MG/DL (<100); NON-HDL-C 180.3 MG/DL; POTASSIUM SERUM 4.5 MMOL/L (3.5-5.1); SODIUM LEVEL 134 MMOL/L (136-145); TOTAL PROTEIN 7.6 G/DL (5.7-8.2); TRIGLYCERIDES LEVEL 192 MG/DL (<150)
[2023-04-05 23:52] LABS: TOTAL 25(OH) VITAMIN D 10.2 NG/ML (20.0-100.0)
== END ==
LOC: M LAB REF 23:05
PROVIDERS: ATTEND Nurse Practitioner Family
DX: E55.9 Vitamin D deficiency, unspecified (principal); E78.2 Mixed hyperlipidemia; F17.209 Nicotine dependence, unspecified, with unspecified nicotine-induced disorders; F32.9 Major depressive disorder, single episode, unspecified; G47.9 Sleep disorder, unspecified

== ENCOUNTER → 2023-08-17 | Outpatient (REF) | LOC: M EMP 11:02 | PROVIDERS: ATTEND Family Medicine | DX: Z11.52 Encounter for screening for COVID-19 (principal) ==

== ENCOUNTER → 2023-12-06 | Outpatient (CLI) | payer BC | LOC: M LAB 08:56 | PROVIDERS: ATTEND Nurse Practitioner Family | DX: L73.2 Hidradenitis suppurativa (principal); Z53.9 Procedure and treatment not carried out, unspecified reason ==

== ENCOUNTER → 2023-12-06 | Outpatient (REF) | payer BC ==
[2023-12-06 12:07] LABS: BASO # 0.1 10^3/uL (0.0-0.2); BASO % 1.1 % (0.0-1.0); EOS # 0.1 10^3/uL (0.0-0.5); EOS % 1.2 % (0.0-3.0); HEMOGLOBIN 11.4 g/dl (12.0-15.5); LYMPH # 2.6 10^3/uL (1.5-5.0); LYMPH % 34.3 % (24.0-44.0); MEAN CORPUSCULAR HEMOGLOBIN 25.3 pg (27.0-33.0); MEAN CORPUSCULAR HGB CONC 30.8 g/dl (32.0-36.5); MONO # 0.6 10^3/uL (0.0-0.8); MONO % 8.3 % (2.0-8.0); NEUTROPHILS # 4.1 10^3/uL (1.5-8.5); NEUTROPHILS % 54.8 % (36.0-66.0); PLATELET COUNT, AUTOMATED 521 10^3/uL (150-450); RED BLOOD COUNT 4.51 10^6/uL (4.00-5.40); WHITE BLOOD COUNT 7.4 10^3/uL (4.0-10.0)
[2023-12-06 12:37] LABS: ALBUMIN 3.5 G/DL (3.2-5.2); ALKALINE PHOSPHATASE 93 U/L (46-116); ALT/SGPT 26 U/L (7.0-40); AST/SGOT 16 U/L (<34); BILIRUBIN,TOTAL 0.2 MG/DL (0.3-1.2); BLOOD UREA NITROGEN 7 MG/DL (9-23); CALCIUM LEVEL 8.8 MG/DL (8.5-10.1); CARBON DIOXIDE LEVEL 26 MMOL/L (20-31); CHLORIDE LEVEL 105 MMOL/L (98-107); CREATININE FOR GFR 0.48 MG/DL (0.55-1.30); GLOMERULAR FILTRATION RATE > 60.0 (>58); GLUCOSE, FASTING 87 MG/DL (60-100); POTASSIUM SERUM 4.5 MMOL/L (3.5-5.1); SODIUM LEVEL 136 MMOL/L (136-145)
[2023-12-06 13:04] LABS: HIV 1&2 SCREEN NEGATIVE (NEGATIVE)
[2023-12-06 13:12] LABS: HEPATITIS C VIRUS ABY INDEX < 0.02 INDEX (<0.8)
[2023-12-06 13:13] LABS: HEPATITIS B CORE ANTIBODY IGM NEGATIVE (NEGATIVE)
== END ==
LOC: M SFHCDERM 08:24
PROVIDERS: ATTEND Nurse Practitioner Family
DX: L73.2 Hidradenitis suppurativa (principal)

== ENCOUNTER → 2023-12-27 | Outpatient (REF) ==
[2023-12-27 12:54] LABS: RSV AMPLIFICATION NEGATIVE (NEGATIVE)
== END ==
LOC: M EMP 10:57
PROVIDERS: ATTEND Family Medicine
DX: Z01.89 Encounter for other specified special examinations (principal)

== ENCOUNTER → 2024-01-18 | Outpatient (REF) | payer BC ==
[2024-01-18 10:27] LABS: BASO # 0.1 10^3/uL (0.0-0.2); BASO % 0.7 % (0.0-1.0); EOS # 0.2 10^3/uL (0.0-0.5); HEMATOCRIT 33.8 % (36.0-47.0); HEMOGLOBIN 10.4 g/dl (12.0-15.5); LYMPH # 3.2 10^3/uL (1.5-5.0); MEAN CORPUSCULAR HEMOGLOBIN 25.5 pg (27.0-33.0); MEAN CORPUSCULAR HGB CONC 30.8 g/dl (32.0-36.5); MEAN CORPUSCULAR VOLUME 82.8 fl (80.0-96.0); MONO # 0.8 10^3/uL (0.0-0.8); MONO % 7.6 % (2.0-8.0); NEUTROPHILS # 5.7 10^3/uL (1.5-8.5); NEUTROPHILS % 57.5 % (36.0-66.0); PLATELET COUNT, AUTOMATED 389 10^3/uL (150-450); RED BLOOD COUNT 4.08 10^6/uL (4.00-5.40); WHITE BLOOD COUNT 9.9 10^3/uL (4.0-10.0)
[2024-01-18 11:06] LABS: ALBUMIN 3.2 G/DL (3.2-5.2); ALKALINE PHOSPHATASE 75 U/L (46-116); ALT/SGPT 24 U/L (7.0-40); AST/SGOT 15 U/L (<34); BILIRUBIN,TOTAL 0.2 MG/DL (0.3-1.2); BLOOD UREA NITROGEN 8 MG/DL (9-23); CALCIUM LEVEL 8.4 MG/DL (8.5-10.1); CARBON DIOXIDE LEVEL 27 MMOL/L (20-31); CHLORIDE LEVEL 106 MMOL/L (98-107); CREATININE FOR GFR 0.51 MG/DL (0.55-1.30); GLOMERULAR FILTRATION RATE > 60.0 (>58); GLUCOSE, FASTING 67 MG/DL (60-100); POTASSIUM SERUM 4.9 MMOL/L (3.5-5.1); SODIUM LEVEL 135 MMOL/L (136-145); TOTAL PROTEIN 6.4 G/DL (5.7-8.2)
== END ==
LOC: M LAB REF 09:06
PROVIDERS: ATTEND Nurse Practitioner Family
DX: L73.2 Hidradenitis suppurativa (principal)

== ENCOUNTER → 2024-02-09 | Outpatient (REF) | payer BC ==
[2024-02-09 09:15] LABS: BASO % 0.5 % (0.0-1.0); EOS # 0.1 10^3/uL (0.0-0.5); EOS % 1.6 % (0.0-3.0); HEMATOCRIT 31.7 % (36.0-47.0); HEMOGLOBIN 9.8 g/dl (12.0-15.5); LYMPH # 2.6 10^3/uL (1.5-5.0); LYMPH % 29.2 % (24.0-44.0); MEAN CORPUSCULAR HEMOGLOBIN 25.2 pg (27.0-33.0); MEAN CORPUSCULAR HGB CONC 30.9 g/dl (32.0-36.5); MEAN CORPUSCULAR VOLUME 81.5 fl (80.0-96.0); MONO # 0.8 10^3/uL (0.0-0.8); MONO % 9.2 % (2.0-8.0); NEUTROPHILS # 5.1 10^3/uL (1.5-8.5); NEUTROPHILS % 58.8 % (36.0-66.0); PLATELET COUNT, AUTOMATED 339 10^3/uL (150-450); RED BLOOD COUNT 3.89 10^6/uL (4.00-5.40); WHITE BLOOD COUNT 8.7 10^3/uL (4.0-10.0)
[2024-02-09 09:21] LABS: ERYTHROCYTE SEDIMENTATION RATE 33 mm/hr (0-20)
[2024-02-09 09:42] LABS: C REACTIVE PROTEIN QUANTITATIV < 0.40 MG/DL (<1.0)
[2024-02-09 09:44] LABS: ALKALINE PHOSPHATASE 78 U/L (46-116); ALT/SGPT 24 U/L (7.0-40); AST/SGOT 13 U/L (<34); BILIRUBIN,TOTAL 0.2 MG/DL (0.3-1.2); BLOOD UREA NITROGEN 10 MG/DL (9-23); CALCIUM LEVEL 8.8 MG/DL (8.5-10.1); CARBON DIOXIDE LEVEL 25 MMOL/L (20-31); CHLORIDE LEVEL 107 MMOL/L (98-107); CREATININE FOR GFR 0.56 MG/DL (0.55-1.30); GLOMERULAR FILTRATION RATE > 60.0 (>58); GLUCOSE, FASTING 133 MG/DL (60-100); IRON (FE) 15 UG/DL (50-170); PERCENT SATURATION 3.7 % (13.2-45.0); POTASSIUM SERUM 4.5 MMOL/L (3.5-5.1); SODIUM LEVEL 135 MMOL/L (136-145); TOTAL IRON BINDING CAPACITY 403 UG/DL (250-425); TOTAL PROTEIN 6.4 G/DL (5.7-8.2)
[2024-02-09 09:45] LABS: FOLATE 10.79 NG/ML (>5.4); THYROID STIMULATING HORMONE 2.188 uIU/ML (0.55-4.78)
[2024-02-09 09:46] LABS: VITAMIN B12 LEVEL 339 PG/ML (211-911)
== END ==
LOC: M LAB REF 08:55
PROVIDERS: ATTEND Nurse Practitioner Family
DX: D64.9 Anemia, unspecified (principal); R60.9 Edema, unspecified

== ENCOUNTER → 2024-03-09 | Outpatient (REF) | payer BC ==
[2024-03-09 07:15] LABS: ERYTHROCYTE SEDIMENTATION RATE 51 mm/hr (0-20)
[2024-03-09 07:17] LABS: BASO # 0.1 10^3/uL (0.0-0.2); BASO % 0.5 % (0.0-1.0); EOS # 0.1 10^3/uL (0.0-0.5); EOS % 1.1 % (0.0-3.0); HEMATOCRIT 36.6 % (36.0-47.0); HEMOGLOBIN 11.4 g/dl (12.0-15.5); LYMPH # 3.5 10^3/uL (1.5-5.0); LYMPH % 26.9 % (24.0-44.0); MEAN CORPUSCULAR HEMOGLOBIN 25.5 pg (27.0-33.0); MEAN CORPUSCULAR HGB CONC 31.1 g/dl (32.0-36.5); MEAN CORPUSCULAR VOLUME 81.9 fl (80.0-96.0); MONO # 1.2 10^3/uL (0.0-0.8); MONO % 9.2 % (2.0-8.0); NEUTROPHILS % 61.9 % (36.0-66.0); PLATELET COUNT, AUTOMATED 455 10^3/uL (150-450); RED BLOOD COUNT 4.47 10^6/uL (4.00-5.40); WHITE BLOOD COUNT 12.9 10^3/uL (4.0-10.0)
[2024-03-09 07:51] LABS: IRON (FE) 33 UG/DL (50-170)
[2024-03-09 07:52] LABS: ALBUMIN 3.6 G/DL (3.2-5.2); ALKALINE PHOSPHATASE 102 U/L (46-116); ALT/SGPT 37 U/L (7.0-40); AST/SGOT 22 U/L (<34); BILIRUBIN,TOTAL 0.2 MG/DL (0.3-1.2); BLOOD UREA NITROGEN 7 MG/DL (9-23); CALCIUM LEVEL 9.3 MG/DL (8.5-10.1); CARBON DIOXIDE LEVEL 24 MMOL/L (20-31); CHLORIDE LEVEL 104 MMOL/L (98-107); CREATININE FOR GFR 0.59 MG/DL (0.55-1.30); GLOMERULAR FILTRATION RATE > 60.0 (>58); GLUCOSE, FASTING 78 MG/DL (60-100); POTASSIUM SERUM 4.5 MMOL/L (3.5-5.1); SODIUM LEVEL 135 MMOL/L (136-145); TOTAL PROTEIN 7.1 G/DL (5.7-8.2)
[2024-03-09 07:54] LABS: FERRITIN 4.1 NG/ML (7.3-270.7)
== END ==
LOC: M LAB REF 07:05
PROVIDERS: ATTEND Nurse Practitioner Family
DX: D50.9 Iron deficiency anemia, unspecified (principal); R60.9 Edema, unspecified; I10 Essential (primary) hypertension

== ENCOUNTER → 2024-06-22 | Outpatient (REF) | LOC: M EMP 10:41 | PROVIDERS: ATTEND Family Medicine | DX: Z11.52 Encounter for screening for COVID-19 (principal) ==

== ENCOUNTER → 2024-06-25 | Outpatient (REF) | LOC: M EMP 08:09 | PROVIDERS: ATTEND Family Medicine | DX: Z11.52 Encounter for screening for COVID-19 (principal) ==

== ENCOUNTER → 2024-07-26 | Outpatient (CLI) | payer BC | LOC: M WHC 13:49 | PROVIDERS: ATTEND Nurse Practitioner Family | DX: N93.9 Abnormal uterine and vaginal bleeding, unspecified (principal); D25.2 Subserosal leiomyoma of uterus ==

== ENCOUNTER → 2024-08-14 | Outpatient (REF) | payer BC | LOC: M SFHCDERM 08:44 | PROVIDERS: ATTEND Nurse Practitioner Family | DX: L73.2 Hidradenitis suppurativa (principal) ==

== ENCOUNTER → 2024-10-02 | Outpatient (REF) | payer BC | LOC: M SFHCDERM 08:30 | PROVIDERS: ATTEND Physician Assistant | DX: Z53.9 Procedure and treatment not carried out, unspecified reason (principal) ==

== ENCOUNTER → 2024-10-18 | Outpatient (REF) | payer BC | LOC: M LAB REF 15:09 → M SFHCWAGY 15:09 | PROVIDERS: ATTEND Obstetrics & Gynecology | DX: N93.9 Abnormal uterine and vaginal bleeding, unspecified (principal) ==

== ENCOUNTER → 2024-10-25 | Outpatient (REF) | payer BC ==
[2024-10-25 10:42] LABS: BLOOD UREA NITROGEN 7 MG/DL (9-23); CALCIUM LEVEL 9.3 MG/DL (8.5-10.1); CARBON DIOXIDE LEVEL 25 MMOL/L (20-31); CHLORIDE LEVEL 103 MMOL/L (98-107); CREATININE FOR GFR 0.56 MG/DL (0.55-1.30); GLOMERULAR FILTRATION RATE > 60.0 (>58); GLUCOSE, FASTING 98 MG/DL (60-100); POTASSIUM SERUM 4.4 MMOL/L (3.5-5.1); SODIUM LEVEL 138 MMOL/L (136-145)
[2024-10-25 10:47] LABS: HCG, SERUM QUALITATIVE NEGATIVE (NEGATIVE)
== END ==
LOC: M LAB REF 09:56
PROVIDERS: ATTEND Physician Assistant
DX: L73.2 Hidradenitis suppurativa (principal)

== ENCOUNTER → 2024-11-22 | Outpatient (REF) | payer BC ==
[2024-11-22 11:38] LABS: BLOOD UREA NITROGEN 9 MG/DL (9-23); CARBON DIOXIDE LEVEL 24 MMOL/L (20-31); CHLORIDE LEVEL 103 MMOL/L (98-107); CREATININE FOR GFR 0.55 MG/DL (0.55-1.30); GLOMERULAR FILTRATION RATE > 60.0 (>58); GLUCOSE, FASTING 86 MG/DL (60-100); POTASSIUM SERUM 4.3 MMOL/L (3.5-5.1); SODIUM LEVEL 137 MMOL/L (136-145)
== END ==
LOC: M LAB REF 10:45
PROVIDERS: ATTEND Physician Assistant
DX: Z79.899 Other long term (current) drug therapy (principal)

== ENCOUNTER 2024-12-14 11:24 | Observation (INO) | payer BC ==
[~2024-12-14] VITALS: Ht 157.5 cm; Wt 106.0 kg
[2024-12-14] VITALS (8 sets, daily range): BP systolic 94–123; BP diastolic 48–79; TEMP 96.8–97.3; O2SAT 88–95
[~2024-12-14 11:24] MED LIST changes: +COSE1INJ SC
[2024-12-14] MEDS ORDERED: MIDAZOLAM INJ 2MG/2ML VIAL As Ordered ONE (11:34)
[2024-12-14] MEDS ORDERED: ROCURONIUM BROMIDE 50MG/5ML VIAL As Ordered ONE (11:35)
[2024-12-14] MEDS ORDERED: LIDOCAINE 2% 100MG/5ML SDV (FOR ANES.) As Ordered ONE (11:35)
[2024-12-14] MEDS ORDERED: propofoL 200 MG/20 ML VIAL As Ordered ONE (11:35)
[2024-12-14] MEDS ORDERED: fentaNYL 100 MCG/2 ML INJECTION As Ordered ONE (11:35)
[2024-12-14] MEDS ORDERED: ACETAMINOPHEN 1000MG/100ML IV BAG As Ordered ONE (11:36)
[2024-12-14] MEDS ORDERED: ONDANSETRON 4MG 2ML VIAL As Ordered ONE (11:36)
[2024-12-14 12:14] LABS: HEMOGLOBIN 11.3 g/dl (12.0-15.5); MEAN CORPUSCULAR HEMOGLOBIN 25.5 pg (27.0-33.0); MEAN CORPUSCULAR HGB CONC 31.4 g/dl (32.0-36.5); MEAN CORPUSCULAR VOLUME 81.1 fl (80.0-96.0); PLATELET COUNT, AUTOMATED 481 10^3/uL (150-450); RED BLOOD COUNT 4.44 10^6/uL (4.00-5.40); WHITE BLOOD COUNT 8.4 10^3/uL (4.0-10.0)
[2024-12-14] MEDS ORDERED: LR 1,000 ML IV SCH (12:20)
[2024-12-14] MEDS: ceFAZolin SOD 3 GM in DEXTROSE 5% (D5W) MINI-BAG PLU 1... IV ONE (13:10)
[2024-12-14] MEDS: METHYLENE BLUE 0.5% (5MG/ML) 10 ML AMP (PROVAYBLUE) As Ordered ONE (14:10)
[2024-12-14] MEDS: LR 1,000 ML IV SCH ×2 (14:40→14:45)
[2024-12-14] MEDS ORDERED: fentaNYL 100 MCG/2 ML INJECTION IV PRN (14:40)
[2024-12-14] MEDS ORDERED: MORPHINE 4 MG/ML 1ML VIAL IV PRN (14:45)
[2024-12-14] MEDS ORDERED: ONDANSETRON 4MG 2ML VIAL IV PRN (14:45)
[2024-12-14] MEDS ORDERED: IBUP80TA PO (15:03)
[2024-12-14] MEDS ORDERED: COLA100C5 PO (15:03)
[2024-12-14] MEDS ORDERED: PERCOCET PO (15:03)
[2024-12-14] MEDS: HYDROMORPHONE HCL 0.5 MG/ 0.5 ML SYRINGE IV PRN (15:22)
[2024-12-14] MEDS: ONDANSETRON 4MG 2ML VIAL IV PRN (15:24)
[2024-12-14] MEDS: oxyCODONE 5MG TAB PO PRN (15:29)
[2024-12-14] MEDS: KETOROLAC 30 MG/ML 1ML VIAL IV SCH (19:53)
[2024-12-14] MEDS: DOCUSATE SODIUM 100MG CAPSULE PO SCH (19:53)
[2024-12-15 02:00] VITALS: BP 116/76; TEMP 97; O2SAT 95
[2024-12-15 04:00] VITALS: BP 96/65; TEMP 97; O2SAT 92
[2024-12-15 06:00] VITALS: BP 119/74; TEMP 97.9; O2SAT 97
[2024-12-15 06:13] VITALS: O2SAT 96
[2024-12-15] MEDS: PERCOCET 5MG/325MG TAB PO PRN ×2 (06:13→11:10)
[2024-12-15] MEDS: OMEPRAZOLE 20MG CAP PO SCH (08:44)
[2024-12-15 08:45] VITALS: BP 99/64
[2024-12-15 09:00] VITALS: BP 99/60
[2024-12-15] MEDS: hydroCHLOROthiazide 12.5 MG CAPSULE PO SCH (09:00)
[2024-12-15] MEDS ORDERED: IBUPROFEN 800 MG TAB PO SCH (16:00)
== END 2024-12-15 11:30 | disposition home or self-care (01) ==
LOC: M SDC 11:24 → M MS5PR 17:00
PROVIDERS: ADMIT Obstetrics & Gynecology; ATTEND Obstetrics & Gynecology
DX: N93.9 Abnormal uterine and vaginal bleeding, unspecified (principal); R10.2 Pelvic and perineal pain; D25.9 Leiomyoma of uterus, unspecified; Z88.0 Allergy status to penicillin; Z88.5 Allergy status to narcotic agent
CPT/HCPCS: 36415; 58571; 81025; 85027; 86850; 86900; 86901; 88307; 96361; 96365; 96366; 96374; 96375; 96376; J0131; J0665; J0690; J1100; J1171; J1885; J2250; J2405; J3010; Q9968; S2900

== ENCOUNTER → 2025-03-19 | Outpatient (REF) | payer BC ==
[~2025-03-19] MED LIST changes: +COLA100C5 PO; +IBUP80TA PO; +PERCOCET PO
[2025-03-21 12:08] LABS: QuantiFERON-TB Gold Plus NEGATIVE (NEGATIVE)
== END ==
LOC: M SFHCDERM 14:48
PROVIDERS: ATTEND Physician Assistant
DX: L73.2 Hidradenitis suppurativa (principal)

== ENCOUNTER → 2025-06-25 | Outpatient (REF) | payer BC | LOC: M SFHCDERM 17:05 | PROVIDERS: ATTEND Nurse Practitioner Family | DX: L73.2 Hidradenitis suppurativa (principal) ==

== ENCOUNTER → 2025-09-25 | Outpatient (REF) | payer BC ==
[2025-09-25 09:36] LABS: BASO # 0.1 10^3/uL (0.0-0.2); BASO % 0.7 % (0.0-1.0); EOS # 0.2 10^3/uL (0.0-0.5); EOS % 2.2 % (0.0-3.0); LYMPH # 2.3 10^3/uL (1.5-5.0); LYMPH % 24.8 % (24.0-44.0); MONO # 0.7 10^3/uL (0.0-0.8); MONO % 7.5 % (2.0-8.0); NEUTROPHILS # 5.9 10^3/uL (1.5-8.5); NEUTROPHILS % 64.6 % (36.0-66.0); PLATELET COUNT, AUTOMATED 471 10^3/uL (150-450)
[2025-09-25 09:41] LABS: ALT/SGPT 41 U/L (7.0-40); AST/SGOT 23 U/L (<34); CALCIUM LEVEL 9.0 MG/DL (8.5-10.1); CARBON DIOXIDE LEVEL 25 MMOL/L (20-31); CHLORIDE LEVEL 105 MMOL/L (98-107); CREATININE FOR GFR 0.53 MG/DL (0.55-1.30); GLOMERULAR FILTRATION RATE > 90.0 (>58); POTASSIUM SERUM 4.6 MMOL/L (3.5-5.1); SODIUM LEVEL 140 MMOL/L (136-145)
[2025-09-25 09:43] LABS: THYROXINE (T4) 8.5 UG/DL (4.5-10.9)
[2025-09-25 09:46] LABS: T UPTAKE 25.0 % (22.5-37.0)
== END ==
LOC: M LAB REF 08:48
PROVIDERS: ATTEND Nurse Practitioner Family
DX: R45.86 Emotional lability (principal)

== ENCOUNTER → 2025-10-10 | Outpatient (RCR) | LOC: M EMPSKH 09-22 06:47 | PROVIDERS: ATTEND Family Medicine | DX: Z20.828 Contact with and (suspected) exposure to other viral communicable diseases (principal) ==